=== PATIENT | female | born 1985 | race Caucasian/White ===

== ENCOUNTER 2018-08-27 20:50 | Emergency (ER) | payer MEDICAID ==
[~2018-08-27] VITALS: Ht 175.3 cm; Wt 63.5 kg
[2018-08-27] MEDS ORDERED: IOHEXOL 300 MG/ML 100ML BOTTLE IJ ONE (21:13)
[2018-08-27] MEDS ORDERED: PROMETHAZINE HCL 25 MG/ML 1ML IV ONE ×2 (21:15→22:15)
[2018-08-27] MEDS ORDERED: HYDROmorphone HCL 2 MG/ML VL IV ONE (21:15)
[2018-08-27] MEDS ORDERED: SODIUM CHLORIDE 0.9% 1,000 ML IV ONE (21:15)
[2018-08-27 21:47] LABS: Eosinophils # (auto) 0 uL; Hematocrit 41.8 % (36.0-46.0); Hemoglobin 13.3 g/dL (12.2-16.2); Lymphocytes # (auto) 0.8 uL; Mean Corpuscular Hemoglobin 26.9 pg (28.0-32.0); Neutrophils # (auto) 9.6 uL; White Blood Cell 10.9 10^3/uL (4.4-10.8)
[2018-08-27 21:49] LABS: Basophils # (auto) 0.1 uL; Basophils % (auto) 0.5 % (0.0-2.0); Eosinophils % (auto) 0.2 % (0.0-7.0); Lymphocytes % (auto) 7.3 % (10.0-50.0); Mean Corpuscular Hgb Conc. 31.8 g/dL (32.0-36.0); Mean Corpuscular Volume 84.5 fL (80.0-100.0); Monocytes # (auto) 0.4 uL; Monocytes % (auto) 4.1 % (0.0-12.0); Neutrophils % (auto) 87.9 % (37.0-80.0); Platelet Count (auto) 226 10^3/uL (140-450); Red Blood Cells 4.95 10^6/uL (4.0-5.20)
[2018-08-27 21:50] LABS: Red Cell Distribution Width 22.5 % (11.8-14.3)
[2018-08-27 22:04] LABS: Albumin 4.3 g/dL (3.4-5.0); BUN/Creatinine Ratio 21.5; Potassium 3.4 mmol/L (3.5-5.1)
[2018-08-27 22:06] LABS: Bilirubin, Total 1.3 mg/dL (0.2-1.0); Total Protein 7.9 g/dL (6.4-8.2)
[2018-08-27 22:07] LABS: INR 1.07 (0.9-1.15); Partial Thromboplastin Time 23.3 sec (23.78-33.04); Prothrombin Time 11.4 sec (9.27-12.13)
[2018-08-27] MEDS ORDERED: KETOROLAC TROMETH 30 MG/ML 1ML VIAL IV ONE (22:15)
[2018-08-27] MEDS ORDERED: diphenhdrAMINE HCL 50 MG/1 ML VL IV ONE (23:15)
[2018-08-27] MEDS ORDERED: HALOPERIDOL LACTATE 5 MG/ML INJ VIAL IM ONE (23:15)
[2018-08-27] MEDS ORDERED: HALOPERIDOL LACTATE 5 MG/ML INJ VIAL ONE (23:16)
[2018-08-28] MEDS ORDERED: SODIUM CHLORIDE 0.9% 1,000 ML IV ONE (02:00)
[2018-08-28] MEDS ORDERED: HYDROmorphone HCL 2 MG/ML VL IV ONE (02:15)
[2018-08-28 02:46] LABS: Calcium 7.9 mg/dL (8.5-10.1)
[2018-08-28 03:02] VITALS: BP 115/65
== END 2018-08-28 04:28 | disposition home or self-care (01) ==
LOC: EDBD 20:50 → ER 20:55
DX: E11.43 Type 2 diabetes mellitus with diabetic autonomic (poly)neuropathy (principal); K31.84 Gastroparesis; E86.0 Dehydration; I10 Essential (primary) hypertension; Z79.4 Long term (current) use of insulin; Z88.6 Allergy status to analgesic agent; Z88.8 Allergy status to other drugs, medicaments and biological substances
CPT/HCPCS: 36415; 74177; 80048; 80053; 82150; 82962; 83605; 83690; 85025; 85610; 85730; 87040; 96361; 96372; 96374; 96375; 96376; 99285; J1170; J1630; J1885; J2550; J7030; Q9967

== ENCOUNTER 2019-03-30 12:10 | Emergency (ER) | payer MEDICAID ==
[~2019-03-30] VITALS: Ht 175.3 cm; Wt 77.1 kg
[2019-03-30] MEDS: SODIUM CHLORIDE 0.9% 1,000 ML IVB ONE (12:32)
[2019-03-30] MEDS: HYDROmorphone HCL 2 MG/ML VL IV ONE (12:32)
[2019-03-30] MEDS: PROCHLORPERAZINE EDISYLATE 5 MG/ML 2ML VIAL IV ONE (12:32)
[2019-03-30] MEDS: FAMOTIDINE (10MG/ML) 2ML VL IV ONE (12:33)
[2019-03-30 13:35] LABS: Basophils # (auto) 0 uL; Basophils % (auto) 0.2 % (0.0-2.0); Eosinophils # (auto) 0 uL; Eosinophils % (auto) 0.3 % (0.0-7.0); Hematocrit 36.1 % (36.0-46.0); Hemoglobin 11.7 g/dL (12.2-16.2); Lymphocytes # (auto) 0.5 uL; Lymphocytes % (auto) 6.3 % (10.0-50.0); Mean Corpuscular Hemoglobin 28.1 pg (28.0-32.0); Mean Corpuscular Hgb Conc. 32.4 g/dL (32.0-36.0); Mean Corpuscular Volume 86.9 fL (80.0-100.0); Monocytes # (auto) 0.6 uL; Monocytes % (auto) 7.1 % (0.0-12.0); Neutrophils # (auto) 7.3 uL; Neutrophils % (auto) 86.1 % (37.0-80.0); Platelet Count (auto) 162 10^3/uL (140-450); Red Blood Cells 4.16 10^6/uL (4.0-5.20); Red Cell Distribution Width 16.5 % (11.8-14.3); White Blood Cell 8.5 10^3/uL (4.4-10.8)
[2019-03-30 13:50] LABS: Albumin 3.3 g/dL (3.4-5.0); Calcium 7.8 mg/dL (8.5-10.1); Magnesium 1.7 mg/dL (1.6-2.6); Potassium 3.8 mmol/L (3.5-5.1)
[2019-03-30 13:53] LABS: BUN/Creatinine Ratio 19.7; Bilirubin, Total 0.8 mg/dL (0.2-1.0); Total Protein 6.5 g/dL (6.4-8.2)
[2019-03-30] MEDS: ONDANSETRON HCL 4 MG/2 ML VIAL IV ONE (14:40)
[2019-03-30] MEDS: SODIUM CHLORIDE 0.9% 1,000 ML IV ONE (14:40)
[2019-03-30 14:50] LABS: Urine Bacteria NONE SEEN /hpf (None Seen); Urine Blood Negative /uL (Negative); Urine WBC <1 /hpf (0 - 5)
[2019-03-30 15:52] VITALS: BP 135/80
== END 2019-03-30 15:53 | disposition home or self-care (01) ==
LOC: EDUNIT# 12:10 → EDBD 12:10 → ER 12:10
DX: E11.43 Type 2 diabetes mellitus with diabetic autonomic (poly)neuropathy (principal); K31.84 Gastroparesis; E11.65 Type 2 diabetes mellitus with hyperglycemia; I10 Essential (primary) hypertension; Z79.4 Long term (current) use of insulin; Z98.51 Tubal ligation status; Z88.6 Allergy status to analgesic agent; Z88.8 Allergy status to other drugs, medicaments and biological substances
CPT/HCPCS: 36415; 74176; 80053; 81001; 83690; 83735; 85025; 93005; 94761; 96361; 96374; 96375; 99284; J0780; J1170; J2405; J3490; J7030

== ENCOUNTER 2020-09-21 09:31 | Emergency (ER) | payer MEDICAID ==
[~2020-09-21] VITALS: Ht 180.3 cm; Wt 77.1 kg
[2020-09-21] MEDS ORDERED: ONDANSETRON HCL 4 MG/2 ML VIAL IV ONE (10:00)
[2020-09-21] MEDS ORDERED: SODIUM CHLORIDE 0.9% 1,000 ML IV ONE (10:00)
[2020-09-21] MEDS ORDERED: MORPHINE SULFATE 4 MG/ML SYR/VIAL IV ONE (10:00)
[2020-09-21 10:32] LABS: Eosinophils # (auto) 0 10 ^3/uL (0-0.8); Lymphocytes # (auto) 0.6 10 ^3/uL (0.4-5.4); Monocytes # (auto) 0.4 10 ^3/uL (0-1.3); Nucleated Red Blood Cells % 0.1 %; Red Blood Cells 4.86 10^6/uL (4.0-5.20)
[2020-09-21 10:34] LABS: Basophils # (auto) 0.1 10 ^3/uL (0-0.2); Basophils % (auto) 0.5 % (0.0-2.0); Eosinophils % (auto) 0.2 % (0.0-7.0); Hematocrit 37.5 % (36.0-46.0); Hemoglobin 11.6 g/dL (12.2-16.2); Lymphocytes % (auto) 5.2 % (10.0-50.0); Mean Corpuscular Hemoglobin 23.9 pg (28.0-32.0); Mean Corpuscular Hgb Conc. 30.9 g/dL (32.0-36.0); Mean Corpuscular Volume 77.3 fL (80.0-100.0); Monocytes % (auto) 2.9 % (0.0-12.0); Neutrophils # (auto) 10.9 10 ^3/uL (1.6-8.6); Neutrophils % (auto) 91.2 % (37.0-80.0); Platelet Count (auto) 243 10^3/uL (140-450); Red Cell Distribution Width 18.4 % (11.8-14.3); White Blood Cell 11.9 10^3/uL (4.4-10.8)
[2020-09-21] MEDS ORDERED: PROMETHAZINE HCL 25 MG/ML 1ML IV ONE (10:45)
[2020-09-21 10:49] LABS: INR 1.08 (0.9-1.15); Partial Thromboplastin Time 21.6 sec (23.0-31.2)
[2020-09-21 10:56] LABS: Potassium 3.3 mmol/L (3.5-5.1)
[2020-09-21 11:02] LABS: BUN/Creatinine Ratio 8.4; Bilirubin, Total 0.4 mg/dL (0.2-1.0); Total Protein 7.8 g/dL (6.4-8.2)
[2020-09-21] MEDS ORDERED: MORPHINE SULFATE 4 MG/ML SYR/VIAL ONE (12:04)
[2020-09-21 13:01] LABS: Urine Bacteria NONE SEEN /hpf (None Seen); Urine Blood Negative /uL (Negative); Urine Mucus FEW (None Seen); Urine Specific Gravity 1.019 (1.001-1.035); Urine WBC 24 /hpf (0 - 5)
[2020-09-21 13:09] LABS: Amphetamine Screen, Urine NEGATIVE (NEGATIVE); Barbiturate Scree,Urine NEGATIVE (NEGATIVE); Benzodiazephine Screen, Urine NEGATIVE (NEGATIVE); Cannabinoid Screen, Urine POSITIVE (NEGATIVE); Cocaine Screen, Urine NEGATIVE (NEGATIVE); Opiate Scree,Urine POSITIVE (NEGATIVE); Phencyclidine Screen, Urine NEGATIVE (NEGATIVE)
[2020-09-21 14:37] VITALS: BP 112/52
== END 2020-09-21 15:26 | disposition home or self-care (01) ==
LOC: ER 09:31 → EDBD 09:31 → ER 14:43
DX: F12.188 Cannabis abuse with other cannabis-induced disorder (principal); E11.9 Type 2 diabetes mellitus without complications; I10 Essential (primary) hypertension; Z32.02 Encounter for pregnancy test, result negative; Z88.6 Allergy status to analgesic agent; Z88.8 Allergy status to other drugs, medicaments and biological substances; Z98.51 Tubal ligation status
CPT/HCPCS: 36415; 74176; 80053; 80307; 81001; 81025; 82150; 83690; 85025; 85610; 85730; 96361; 96374; 96375; 99284; J2270; J2405; J2550; J7030

== ENCOUNTER 2024-05-28 16:43 | Emergency (ER) | payer MEDICAID ==
[~2024-05-28] VITALS: Ht 175.3 cm; Wt 75.2 kg
[~2024-05-28 16:43] MED LIST: PANT40TA2 PO; ZOFR4T PO
[2024-05-28 19:00] LABS: Urine Bacteria FEW /hpf (None Seen); Urine Blood 1+ /uL (Negative); Urine Clarity Clear (Clear); Urine Color Yellow (Yellow); Urine Hyaline Cast MOD /lpf (0 - 2); Urine Mucus FEW (None Seen); Urine Protein, UAD TRACE (Negative); Urine Specific Gravity 1.025 (1.001-1.035); Urine Urobilinogen Normal (Negative); Urine WBC 1 /hpf (0 - 5); Urine pH 6.5 (5.0-9.0)
[2024-05-28 19:10] LABS: Eosinophils # (auto) 0.5 10 ^3/uL (0-0.8); Hemoglobin 11.3 g/dL (12.2-16.2); Lymphocytes # (auto) 1.4 10 ^3/uL (0.4-5.4); Mean Corpuscular Volume 74.8 fL (80.0-100.0); Monocytes # (auto) 1.1 10 ^3/uL (0-1.3); Neutrophils # (auto) 3.9 10 ^3/uL (1.6-8.6)
[2024-05-28 19:12] LABS: Basophils # (auto) 0.1 10 ^3/uL (0-0.2); Basophils % (auto) 0.8 % (0.0-2.0); Eosinophils % (auto) 7.9 % (0.0-7.0); Hematocrit 35.4 % (36.0-46.0); Lymphocytes % (auto) 19.8 % (10.0-50.0); Mean Corpuscular Hemoglobin 23.9 pg (28.0-32.0); Monocytes % (auto) 15.4 % (0.0-12.0); Neutrophils % (auto) 56.1 % (37.0-80.0); Red Blood Cells 4.74 10^6/uL (4.0-5.20); Red Cell Distribution Width 19.9 % (11.8-14.3)
[2024-05-28 19:27] LABS: Alanine Aminotransferase 14 U/L (7-40); Albumin 4.4 g/dL (3.2-4.8); Alkaline Phosphatase 103 U/L (46-116); Anion Gap 7 (5-15); Aspartate Aminotransferase 12 U/L (13-40); BUN/Creatinine Ratio 14.7 (10.0-20.0); Blood Urea Nitrogen 11 mg/dL (9-23); Calcium 9.8 mg/dL (8.7-10.4); Carbon Dioxide 32 mmol/L (20-30); Chloride 98 mmol/L (98-107); Glucose 92 mg/dL (74-106); Sodium 137 mmol/L (136-145)
[2024-05-28 19:28] LABS: Bilirubin, Total 0.5 mg/dL (0.2-1.0); Total Protein 7.4 g/dL (5.7-8.2)
[2024-05-28] MEDS: ONDANSETRON HCL 4 MG/2 ML VIAL IV ONE (19:37)
[2024-05-28] MEDS: SODIUM CHLORIDE 0.9% 1,000 ML IV ONE (19:37)
[2024-05-28 20:02] LABS: Potassium 2.4 mmol/L (3.5-5.1)
[2024-05-28] MEDS: POTASSIUM CHL 20MEQ/100ML 100 ML IV SCH (21:37)
[2024-05-28] MEDS: POTASSIUM CHL 20 Meq TABLET PO ONE (21:37)
[2024-05-28 21:43] VITALS: PULSE 88; RESP 16; O2SAT 99
[2024-05-29 07:14] VITALS: BP 120/87; PULSE 76; RESP 16; TEMP 98.2; O2SAT 96
== END 2024-05-29 07:15 | disposition home or self-care (01) ==
LOC: ER 16:43
DX: E87.6 Hypokalemia (principal); R11.2 Nausea with vomiting, unspecified; E10.9 Type 1 diabetes mellitus without complications; I10 Essential (primary) hypertension; F12.10 Cannabis abuse, uncomplicated; Z32.02 Encounter for pregnancy test, result negative; Z98.51 Tubal ligation status; Z88.6 Allergy status to analgesic agent
CPT/HCPCS: 36415; 80053; 81001; 81025; 85025; 93005; 96361; 96365; 96366; 99285; J3480; J7030

== ENCOUNTER 2024-12-16 10:39 | Inpatient (IN) | payer MEDICAID ==
[~2024-12-16] VITALS: Ht 167.6 cm; Wt 81.2 kg
--- NOTE | 2024-12-16 10:52 | ED.PDOC ---
GI ASSESSMENT HPI Comments 39y F who presents to the ED via EMS for chief complaint of abdominal pain. Per EMS, pt has been having diffuse abdominal pain for the past 36 hours. Pt states it has gotten worse since last night and called EMS today. Pt states she had been having nausea, vomiting and diarrhea but states since last night, she started to have chills and associated body aches. EMS arrived on scene and pt had AC established and pt was given 8 mg of Zofran and brought to the ED. EMS states pt has noted Accu check of 568 with pt being a noted type 1 diabetic. Pt in the ED states, she had bone graft surgery last Saturday, 5 days prior and states she has been on amoxicillin and Flagyl since. Pt states last night, she also started to have black stools.Pt otherwise denies any other symptoms at this time. Chief Complaint: Nausea/Vomiting Time Seen by MD: 10:48 Primary Care Provider: ITZEL Reviewed Notes: Nurses Notes, Medications, Allergies Allergies: Coded Allergies: Acetaminophen (Verified Allergy, Unknown, 09/21/20) Hydrocodone (Verified Allergy, Unknown, 09/21/20) Lisinopril (Verified Allergy, Unknown, 05/28/24) Uncoded Allergies: DEMEROL (Allergy, Unknown, 08/27/18) Home Meds Active Scripts Pantoprazole Sodium Sesquihydr (Protonix) 40 Mg Tab, 40 MG PO DAILY, #30 TAB Prov:SONU PETE MD 05/21/24 Ondansetron Odt 4MG Tab (ZOFRAN PO) 4 Mg Tb, 4 MG PO TID for 7 Days, #21 TAB ODT TAB-DISSOLVE IN MOUTH, THEN SWALLOW Prov:SONU PETE MD 05/21/24 Information Source: Patient, Emergency Med Personnel Mode of Arrival: EMS Brought in by: EMS Timing: Days Duration: Since onset Prehospital treatment: Treatment (zofran,) Quality: None Vomitus: Soft Stool: Blood Streaked Severity: Moderate Recent: Recent Surgery, Antibiotics Recent Hx of: Diabetes Pain Location: Diffuse Modifying Factors: Nothing Associated sign and symptoms: Nausea, Vomiting, Diarrhea, Abdominal Pain Past Medical History PAST MEDICAL HISTORY: DM, HTN Past Medical History (Other): irregular heart beat, gastroparesis Surgical History: BTL, GAS OR WATER METER INSTALLER History: No Pertinent GAS OR WATER METER INSTALLER History Family History Family History: Unknown Social History Smoker: Non-Smoker Alcohol: Heavy Drugs: Marijuana Lives In: Home Constitutional: reports: chills, fatigue; denies: diaphoresis, fever, malaise, sweats, weakness, others EENTM: denies: blurred vision, double vision, ear bleeding, ear discharge, ear drainage, ear pain, ear ringing, eye pain, eye redness, hearing loss, mouth pain, mouth swelling, nasal discharge, nose bleeding, nose congestion, nose pain, photophobia, tearing, throat pain, throat swelling, voice changes, others Respiratory: denies: cough, hemoptysis, orthopnea, SOB at rest, shortness of breath, SOB with excertion, stridor, wheezing, others Cardiovascular: denies: chest pain, dizzy spells, diaphoresis, Dyspnea on exertion, edema, irregular heart beat, left arm pain, lightheadedness, palpitations, PND, syncope, others Gastrointestinal: reports: abdominal pain, diarrhea, nausea, vomiting; denies: abdomen distended, blood streaked bowels, constipated, dysphagia, difficulty swallowing, hematemesis, melena, poor appetite, poor fluid intake, rectal bleeding, rectal pain, others Genitourinary: denies: abnormal vagina bleeding, burning, dyspareunia, dysuria, flank pain, frequency, hematuria, incontinence, pain, , vagina discharge, urgency, others Neurological: denies: dizziness, fainting, headache, left sided numbness, left sided weakness, numbness, paresthesia, pre-existing deficit, right sided numbness, right sided weakness, seizure, speech problems, tingling, tremors, weakness, others Musculoskeletal: denies: back pain, gout, joint pain, joint swelling, muscle pain, muscle stiffness, neck pain, others Integumetry: denies: bruises, change in color, change in hair/nails, dryness, laceration, lesions, lumps, rash, wounds, others Allergic/Immunocompromised: denies: Difficulty Healing, Frequent Infections, Hives, Itching, others Hematologic/Lymphatic: denies: anemia, blood clots, easy bleeding, easy bruising, swollen glands, others Endocrine: denies: excessive hunger, excessive sweating, excessive thirst, excessive urination, flushing, intolerance to cold, intolerance to heat, unexplained weight gain, unexplained weight loss, others Psychiatric: denies: anxiety, bipolar disorder, depression, hopeless, panic disorder, schizophrenia, sleepless, suicidal, others All Other Systems: Reviewed and Negative Physical Exam General Appearance: Moderate Distress HEENT: Pale Conjuntivae (L), Pale Conjuntivae (R), Pharynx Normal, TMs Normal Neck: Full Range of Motion, Non-Tender, Normal, Normal Inspection Respiratory: Chest Non-Tender, Lungs Clear, No Accessory Muscle Use, No Respiratory Distress, Normal Breath Sounds Cardiovascular: No Edema, No JVD, No Murmur, No Gallop, Normal Peripheral Pulses, Regular Rate/Rhythm Breast Exam: Deferred Gastrointestinal: No Organomegaly, Non Tender, No Pulsatile Mass, Normal Bowel Sounds, Soft Genitalia: Deferred Pelvic: Deferred Rectal: Deferred Extremities: No calf tenderness, Normal capillary refill, Normal inspection, Normal range of motion, Non-tender, No pedal edema Musculoskeletal : Apperance: Normal Neurologic: Alert, clinical staff anesthesiologist II-XII nml as Tested, Motor Weakness, Normal Affect, Normal Mood, No Sensory Deficits Cerebellar Function: Normal Reflexes: Normal Skin: Dry, Normal Color, Warm Lymphatic: No Adenopathy Was a procedure done? Was a procedure done?: No GI differential Dx Differential Diagnosis: Diverticular disease, Gastritis/PUD, Gastroenteritis, GI hemorrhage, Pancreatitis, UTI Other Differential Diagnosis DKA, C DIFF COLITIS X-Ray, Labs, Meds, VS Vital Signs Date Time Temp Pulse Resp B/P (MAP) Pulse Ox O2 Delivery O2 Flow Rate FiO2 12/16/24 12:00 95 18 101/44 (63) 12/16/24 12:00 95 17 101/44 12/16/24 11:20 15 15 143/61 12/16/24 10:58 98.0 105 22 108/44 (65) 100 98.0 12/16/24 10:56 100 Room Air* 0 21 12/16/24 10:41 98.0 104 22 138/94 (109) 96 Lab Test 12/16/24 10:52 Range/Units White Blood Count 7.1 4.4-10.8 10^3/uL Red Blood Count 4.75 4.0-5.20 10^6/uL Hemoglobin 11.4 L 12.2-16.2 g/dL Hematocrit 37.3 36.0-46.0 % Mean Corpuscular Volume 78.5 L 80.0-100.0 fL Mean Corpuscular Hemoglobin 23.9 L 28.0-32.0 pg Mean Corpuscular Hemoglobin Concent 30.5 L 32.0-36.0 g/dL Red Cell Distribution Width 20.0 H 11.8-14.3 % Platelet Count 214 140-450 10^3/uL Mean Platelet Volume 10.5 6.9-10.8 fL Neutrophils (%) (Auto) 82.3 H 37.0-80.0 % Lymphocytes (%) (Auto) 10.2 10.0-50.0 % Monocytes (%) (Auto) 5.2 0.0-12.0 % Eosinophils (%) (Auto) 0.7 0.0-7.0 % Basophils (%) (Auto) 1.6 0.0-2.0 % Neutrophils # (Auto) 5.9 1.6-8.6 10 ^3/uL Lymphocytes # (Auto) 0.7 0.4-5.4 10 ^3/uL Monocytes # (Auto) 0.4 0-1.3 10 ^3/uL Eosinophils # (Auto) 0 0-0.8 10 ^3/uL Basophils # (Auto) 0.1 0-0.2 10 ^3/uL Nucleated Red Blood Cells 0.1 % Sodium Level 132 L 136-145 mmol/L Potassium Level 4.7 3.5-5.1 mmol/L Chloride Level 97 L 98-107 mmol/L Carbon Dioxide Level 14 L 20-31 mmol/L Anion Gap 21 H 5-15 Blood Urea Nitrogen 14 9-23 mg/dL Creatinine 1.14 H 0.550-1.02 mg/dL Glomerular Filtration Rate Calc 62 >90 mL/min BUN/Creatinine Ratio 12.3 10.0-20.0 Serum Glucose 568 *H 74-106 mg/dL Calcium Level 9.8 8.7-10.4 mg/dL Total Bilirubin 0.6 0.2-1.0 mg/dL Aspartate Amino Transferase (AST) 17 13-40 U/L Alanine Aminotransferase (ALT) 14 7-40 U/L Alkaline Phosphatase Pending Total Protein 7.0 5.7-8.2 g/dL Albumin 4.5 3.2-4.8 g/dL Lipase 23 12-53 U/L Beta-Hydroxybutyric Acid Pending Current Medications Medications (Trade) Dose Ordered Sig/Genoveva Route Start Time Stop Time Status Last Admin Sodium Chloride 1,000 ml @ 1,000 mls/hr Q1H ONCE IVB 12/16/24 10:45 12/16/24 11:44 DC 12/16/24 11:20 Morphine Sulfate 4 mg ONCE ONCE IV 12/16/24 10:45 12/16/24 10:46 DC 12/16/24 11:20 Prochlorperazine Edisylate (Compazine Inj) 10 mg ONCE ONCE IV 12/16/24 10:45 12/16/24 10:46 DC 12/16/24 11:19 Pantoprazole Sodium (Protonix) 40 mg ONCE ONCE IV 12/16/24 10:45 12/16/24 10:46 DC 12/16/24 11:17 Insulin Human Regular (InsuLIN R) 5 units ONCE ONCE IV 12/16/24 10:45 12/16/24 10:46 DC 12/16/24 11:19 CT ABDOMEN AND PELVIS WITHOUT CONTRAST IMPRESSION: 1. There is no acute process in the abdomen and pelvis. 2. Stable 3 mm nodule in the inferior right middle lobe. IV Hep-Lock was established. For the pain, the patient was given Protonix 40 mg IV push The patient was also given Compazine 10 mg IV push for the nausea and vomiting The patient was given morphine 4 mg IV push for the pain. The patient's Accu-Chek came back significantly elevated so the patient will be continued on the normal saline and was given insulin 5 units IV push initially. The patient's CBC came back which is within normal limits. The chemistry panel came back and shows a BUN of 14 and a creatinine of 1.14 The patient's CO2 level is only 14 and the anion gap is elevated at 21 At this time we are ordering an ABG because we feel that the patient was in early DKA The patient was being started on an insulin drip. We are going to contact [facility] and let them know that the patient was unstable for transfer. [facility] has given us the authorization for admission to [facility] The authorization #[id number] Images Reviewed?: Images reviewed and evaluated by me Time of 1ST Reevaluation: 11:20 Reevaluation 1ST: Unchanged Patient Education/Counseling: Diagnosis, Treatment, Prognosis Family Education/Counseling: No Family Present Additional Information - I reviewed the following notes from patient's past medical encounters: - The following tests were ordered, and results were reviewed by me: (Labs, X- Ray, EKG): Ct abdomen pelvis non-contrast, cbc, cmp, lipase, ua, - Additional information was gathered from interviewing the following independent Historian: (Family, Other Providers, EMT): EMS - I reviewed and agreed with the following test results read by other provider: radiologist - I discussed treatments and results with medical personnel and: (consultants, family): none Departure 1 Departure Time of Disposition: 12:29 Impression: Primary Impression: Diabetic ketoacidosis Qualified Codes: E10.10 - Type 1 diabetes mellitus with ketoacidosis without coma Additional Impressions: Intractable vomiting Marijuana use Disposition: ADMITTED INPATIENT Admit to: ICU Condition: Fair Critical Care Note Critical Care Time?: Yes (45 min-critical care time only) Stability Stability form required: Yes Unstable for transfer: ICU, CCU, PCU, KEYON (Intensive VS monitoring), ED Physician Assesment (Clinical assesment) Heart Score Heart Score: Heart Score Response (Comments) Value History N/A 0 EKG N/A 0 Age N/A 0 Risk Factors N/A 0 Troponin N/A 0 Total 0 I personally scribed for LACEY HIGH MD ([email or web address]) on 12/16/24 at 10:52. Electronically submitted by Farhad Vyas ([employer]SURINDER). I personally scribed for LACEY HIGH MD ([email or web address]) on 12/16/24 at 11:29. Electronically submitted by Farhad SALINAS). LACEY HIGH MD Dec 16, 2024 10:52
[2024-12-16 10:56] VITALS: O2SAT 100
[2024-12-16 11:17] LABS: Eosinophils # (auto) 0 10 ^3/uL (0-0.8); Eosinophils % (auto) 0.7 % (0.0-7.0); Platelet Count (auto) 214 10^3/uL (140-450); Red Blood Cells 4.75 10^6/uL (4.0-5.20)
[2024-12-16] MEDS: PANTOPRAZOLE 40 MG/10 ML VIAL INJ IV ONE (11:17)
[2024-12-16] MEDS: PROCHLORPERAZINE EDISYLATE 5 MG/ML 2ML VIAL IV ONE (11:19)
[2024-12-16] MEDS: InsuLIN REG 1unit/0.01ml Soln (100units/ml) IV ONE (11:19)
[2024-12-16] MEDS: MORPHINE SULFATE 4 MG/ML SYR/VIAL IV ONE ×2 (11:20→12:40)
[2024-12-16] MEDS: SODIUM CHLORIDE 0.9% 1,000 ML IVB ONE (11:20)
[2024-12-16 11:23] LABS: Basophils # (auto) 0.1 10 ^3/uL (0-0.2); Basophils % (auto) 1.6 % (0.0-2.0); Hematocrit 37.3 % (36.0-46.0); Hemoglobin 11.4 g/dL (12.2-16.2); Lymphocytes # (auto) 0.7 10 ^3/uL (0.4-5.4); Lymphocytes % (auto) 10.2 % (10.0-50.0); Mean Corpuscular Hemoglobin 23.9 pg (28.0-32.0); Mean Corpuscular Hgb Conc. 30.5 g/dL (32.0-36.0); Mean Corpuscular Volume 78.5 fL (80.0-100.0); Monocytes # (auto) 0.4 10 ^3/uL (0-1.3); Monocytes % (auto) 5.2 % (0.0-12.0); Neutrophils # (auto) 5.9 10 ^3/uL (1.6-8.6); Neutrophils % (auto) 82.3 % (37.0-80.0); Nucleated Red Blood Cells % 0.1 %; White Blood Cell 7.1 10^3/uL (4.4-10.8)
--- NOTE | 2024-12-16 11:26 | DVH ---
CT ABDOMEN AND PELVIS WITHOUT CONTRAST CLINICAL HISTORY: PAIN TECHNIQUE: Multiple contiguous axial images of the abdomen and pelvis without intravenous contrast. The images were reformatted degenerate coronal and sagittal reconstructions. All CT scans at this medical facility are performed using dose modulation techniques as appropriate t o a performed exam including the following:Automated exposure control was utilized; adjustment of the MA and/or KV according to patient size; and use of iterative reconstruction technique. Radiation Dose Information: CT Dose: CTDI volume is 14 mGy. Dose-length product is 807 mGy*cm Comparison: CT CT AB PEL WO CON-NO ORAL OR IV on DOS: 05/21/24, CT ABD PELVIS WO CONTRAST on DOS: 09/04 06/23 FINDINGS: Evaluation of the abdomen and pelvis is limited without intravenous contrast. The liver, gallbladder, pancreas, kidneys, adrenal glands, and spleen appear within normal limits. There is no gross evidence of abdominal lymphadenopathy. There is no free fluid or free air. The stomach grossly appears unremarkable. The small and large bowel loops demonstrate normal caliber . There is small amount contrast seen in right lower quadrant small bowel loops and in the cecum. Th ere is a normal appearing appendix seen in the right lower quadrant abdomen. The abdominal aorta and IVC appear within normal limits. The bladder appears unremarkable for the degree of distention. Pelvic organ appears within normal cedeno its. There is no gross evidence of a pelvic mass. There is no free fluid collection. There is a stable 3 mm nodule in the inferior right middle lobe. There is no acute osseous abnormality. IMPRESSION: 1. There is no acute process in the abdomen and pelvis. 2. Stable 3 mm nodule in the inferior right middle lobe. HS:Y
[2024-12-16 12:05] LABS: Alanine Aminotransferase 14 U/L (7-40); Albumin 4.5 g/dL (3.2-4.8); Anion Gap 21 (5-15); Aspartate Aminotransferase 17 U/L (13-40); BUN/Creatinine Ratio 12.3 (10.0-20.0); Blood Urea Nitrogen 14 mg/dL (9-23); Calcium 9.8 mg/dL (8.7-10.4); Lipase 23 U/L (12-53); Potassium 4.7 mmol/L (3.5-5.1)
[2024-12-16 12:06] LABS: Bilirubin, Total 0.6 mg/dL (0.2-1.0)
[2024-12-16 12:15] LABS: Carbon Dioxide 14 mmol/L (20-31); Chloride 97 mmol/L (98-107); Sodium 132 mmol/L (136-145)
[2024-12-16 12:17] LABS: Glucose 568 mg/dL (74-106)
[2024-12-16] MEDS ORDERED: DEXTROSE (50%) 50ML SYRG IV PRN ×2 (12:30→23:45)
[2024-12-16] MEDS: INSULIN LANTUS (GLARGINE) 1 /0.01ml (100units/ml) SC ONE (12:41)
[2024-12-16] MEDS: INSULIN DRIP 100 UNIT/100ML 100 ML IV SCH (12:42)
[2024-12-16 12:59] LABS: Base Excess -13.5 mmol/L (-2.0-3.0)
[2024-12-16 13:05] LABS: Alkaline Phosphatase 83 U/L (46-116)
[2024-12-16] MEDS: ACCU-CHEK COMFORT CURVE STRIP VI SCH (13:35)
[2024-12-16] MEDS ORDERED: AMLO1TAB23 PO (14:38)
[2024-12-16] MEDS ORDERED: INSLANTI SC (14:38)
[2024-12-16] MEDS ORDERED: SODIUM CHLORIDE 0.9% 1,000 ML IV SCH (14:45)
[2024-12-16] MEDS ORDERED: HYDROcodone-ACET 5/325MG TAB PO PRN (14:45)
[2024-12-16] MEDS ORDERED: DOCUSATE SOD 100 MG CAP PO PRN (14:45)
[2024-12-16] MEDS ORDERED: MORPHINE SULFATE INJ 2 MG/ml SYRG IV PRN (14:45)
[2024-12-16] MEDS ORDERED: NITROGLYCERIN 0.4 MG SL TAB SL PRN (14:45)
--- NOTE | 2024-12-16 14:49 | DVHHP2 ---
History of Present Illness Reason for Visit: Intractable nausea and vomiting History of Present Illness Luisana Bassett is a 39-year-old female with past medical history of hypertension, and diabetes who came into the hospital due to intractable nausea and vomiting. Patient states she started having abdominal pain, nausea, and vomiting last night. When it wasn't improving today she and her blood sugars were elevating she came to the hospital. Patient had bone graft surgery to her jaw last week. She states she was able to take her medications last night, but not this morning due to the nausea and vomiting. Cardiovascular: HTN Endocrine: Diabetes Past Surgical History: (x 2), Other (Left breast surgery, multiple bone grafts to upper and lower jaw), Tubal Ligation Family History: None Smoke: No ALCOHOL: rare Drugs: Marijuana Lives: with Family Domestic Violence: Neg Review of Systems Constitutional: No: Fever, Chills, Sweats, Weakness, Malaise, Other Eyes: No: Pain, Vision change, Conjunctivae inflammation, Eyelid inflammation, Other, Redness ENT: No: Ear pain, Ear discharge, Nose pain, Nose discharge, Nose congestion, Mouth pain, Mouth swelling, Throat pain, Throat swelling, Other Respiratory: No: Cough, Dry, Shortness of breath, SOB with excertion, Wheezing, Hemoptysis, Pleuritic Pain, Sputum, Wheezing, Other Cardiovascular: No: Chest Pain, Palpitations, Orthopnea, Paroxysmal Noc. Dyspnea, Edema, Lt Headedness, Other Gastrointestinal: Nausea, Vomiting, Abdominal Pain; No: Diarrhea, Constipation, Melena, Hematochezia, Other Genitourinary: No Dysuria, No Frequency, No Incontinence, No Hematuria, No Retention, No Other Musculoskeletal: No: other, neck pain, shoulder pain, arm pain, back pain, hand pain, leg pain, foot pain Skin: No: Rash, Lesions, Jaundice, Bruising, Other Neurological: No: Weakness, Numbness, Incoordination, Change in speech, Confusion, Seizures, Other Allergies: Coded Allergies: Hydrocodone (Verified Allergy, Unknown, 09/21/20) Lisinopril (Verified Allergy, Unknown, 05/28/24) Uncoded Allergies: DEMEROL (Allergy, Unknown, 08/27/18) Medications Current Medications Medications Dose Ordered Sig/Genoveva Route Start Time Stop Time Status Last Admin Dose Admin Insulin Human (Reg)/Sodium Chloride 100 ml @ 0.5 mls/hr Q24H IV 12/16/24 12:30 12/16/24 12:42 6 MLS/HR Diagnostic Test (Pha) 1 strip Q90MIN 12/16/24 13:30 12/16/24 13:35 1 STRIP Dextrose 50 ml PRN PRN IV 12/16/24 12:30 Acetaminophen/ Hydrocodone Bitart 1 tab Q4HP PRN PO 12/16/24 14:45 UNV Ondansetron HCl 4 mg Q4HP PRN IV 12/16/24 14:45 UNV Docusate Sodium 100 mg BIDPRN PRN PO 12/16/24 14:45 UNV Acetaminophen 650 mg Q6HP PRN PO 12/16/24 14:45 UNV Nitroglycerin 0.4 mg Q5MINP PRN SL 12/16/24 14:45 UNV Morphine Sulfate 2 mg Q30M PRN IV 12/16/24 14:45 UNV Insulin Glargine 40 units DAILY SC 12/17/24 10:00 UNV Patient Own Medication 1 tab DAILY PO 12/17/24 10:00 UNV Metoclopramide HCl 10 mg Q8HPRN PRN IV 12/16/24 14:45 UNV Metronidazole 100 ml @ 100 mls/hr Q8HR IV 12/16/24 14:45 UNV Exam Vital Signs Vital Signs Date Time Temp Pulse Resp B/P (MAP) Pulse Ox O2 Delivery O2 Flow Rate FiO2 12/16/24 14:00 98.2 100 11 104/59 (74) 98 98.2 12/16/24 10:56 Room Air* 0 21 Exam Pain to her jaw General Appearance: Alert, Oriented X3, Cooperative, moderate distress HEENT: Atraumatic, PERRLA Respiratory: Clear to auscultation, Normal air movement Cardiovascular: Regular rate, Normal S1, Normal S2 Abdominal: Normal bowel sounds, Soft, No tenderness, No hepatospenomegaly Extremities: No clubbing, No cyanosis, No edema, Normal pulses, No t enderness/swelling Skin: No rashes, No breakdown, No significant lesion Neuro: Normal gait, Normal speech, Strength at 5/5 X4 ext Psych/Mental Status: Mental status NL, Mood NL Labs/Xrays Labs Test 12/16/24 13:37 2/12/25 12:55 12/16/24 10:52 Range/Units POC Glucose 310 H 70-106 mg/dl Blood Gas Specimen Type Arterial Blood Gas Sample Site Left radial Blood Gas Patient Temperature 37.0 Arterial Blood Date Drawn [id number] Arterial Blood pH 7.308 L 7.350-7.450 Arterial Blood Partial Pressure CO2 22.4 L 32.0-45.0 mmHg Arterial Blood Partial Pressure O2 102.0 83.0-108.0 mmHg Arterial Blood HCO3 11.0 L 21.0-28.0 mmol/L Arterial Blood Oxygen Saturation 97.1 94.0-98.0 % Arterial Blood Base Excess -13.5 L -2.0-3.0 mmol/L Arterial Blood Oxyhemoglobin 95.9 94.0-98.0 % Arterial Blood Carboxyhemoglobin 0.3 L 0.5-1.5 % Arterial Blood Methemoglobin 0.9 0.0-1.5 % Jose Rafael Test Yes Blood Gas Total Hemoglobin 11.60 L 12.0-16.0 g/dL Blood Gas Liter Flow 0.00 Blood Gas Modality Room air FiO2 % 21.0 White Blood Count 7.1 4.4-10.8 10^3/uL Red Blood Count 4.75 4.0-5.20 10^6/uL Hemoglobin 11.4 L 12.2-16.2 g/dL Hematocrit 37.3 36.0-46.0 % Mean Corpuscular Volume 78.5 L 80.0-100.0 fL Mean Corpuscular Hemoglobin 23.9 L 28.0-32.0 pg Mean Corpuscular Hemoglobin Concent 30.5 L 32.0-36.0 g/dL Red Cell Distribution Width 20.0 H 11.8-14.3 % Platelet Count 214 140-450 10^3/uL Mean Platelet Volume 10.5 6.9-10.8 fL Neutrophils (%) (Auto) 82.3 H 37.0-80.0 % Lymphocytes (%) (Auto) 10.2 10.0-50.0 % Monocytes (%) (Auto) 5.2 0.0-12.0 % Eosinophils (%) (Auto) 0.7 0.0-7.0 % Basophils (%) (Auto) 1.6 0.0-2.0 % Neutrophils # (Auto) 5.9 1.6-8.6 10 ^3/uL Lymphocytes # (Auto) 0.7 0.4-5.4 10 ^3/uL Monocytes # (Auto) 0.4 0-1.3 10 ^3/uL Eosinophils # (Auto) 0 0-0.8 10 ^3/uL Basophils # (Auto) 0.1 0-0.2 10 ^3/uL Nucleated Red Blood Cells 0.1 % Sodium Level 132 L 136-145 mmol/L Potassium Level 4.7 3.5-5.1 mmol/L Chloride Level 97 L 98-107 mmol/L Carbon Dioxide Level 14 L 20-31 mmol/L Anion Gap 21 H 5-15 Blood Urea Nitrogen 14 9-23 mg/dL Creatinine 1.14 H 0.550-1.02 mg/dL Glomerular Filtration Rate Calc 62 >90 mL/min BUN/Creatinine Ratio 12.3 10.0-20.0 Serum Glucose 568 *H 74-106 mg/dL Calcium Level 9.8 8.7-10.4 mg/dL Total Bilirubin 0.6 0.2-1.0 mg/dL Aspartate Amino Transferase (AST) 17 13-40 U/L Alanine Aminotransferase (ALT) 14 7-40 U/L Alkaline Phosphatase 83 46-116 U/L Total Protein 7.0 5.7-8.2 g/dL Albumin 4.5 3.2-4.8 g/dL Lipase 23 12-53 U/L CT ABDOMEN AND PELVIS WITHOUT CONTRAST FINDINGS: Evaluation of the abdomen and pelvis is limited without intravenous contrast. The liver, gallbladder, pancreas, kidneys, adrenal glands, and spleen appear within normal limits. There is no gross evidence of abdominal lymphadenopathy. There is no free fluid or free air. The stomach grossly appears unremarkable. The small and large bowel loops demonstrate normal caliber. There is small amount contrast seen in right lower quadrant small bowel loops and in the cecum. There is a normal appearing appendix seen in the right lower quadrant abdomen. The abdominal aorta and IVC appear within normal limits. The bladder appears unremarkable for the degree of distention. Pelvic organ appears within normal limits. There is no gross evidence of a pelvic mass. There is no free fluid collection. There is a stable 3 mm nodule in the inferior right middle lobe. There is no acute osseous abnormality. IMPRESSION: 1. There is no acute process in the abdomen and pelvis. 2. Stable 3 mm nodule in the inferior right middle lobe. Assessment/Plan Assessment/Plan Assessment: DKA, Intractable nausea and vomiting, S/P Bone graft to lower jaw, Hypertension, Plan: Admit to SDU, Insulin drip per protocol, Lantus daily, IV IV hydration, Manage/Monitor electrolytes closely, NPO, IV Flagyl, BMP Q4 hours, Home medications reconciled, Plan discussed with: Patient My Orders Orders - BISHNU DON Procedure Category Date Status Time Admit ADMIT 12/16/24 Transmitted 14:35 Code Status CODE 12/16/24 Transmitted 14:35 Hydrocodone-Acet PHA 12/16/24 Logged 5/325mg Tab ([facility]mith 14:45 Ondansetron Hcl PHA 12/16/24 Logged (Zofran) 14:45 Docusate Sodium PHA 12/16/24 Logged Capsule (Colace 14:45 Complete Blood Count LAB 12/17/24 Verified 04:00 Comprehensive LAB 12/17/24 Verified Metabolic Panel 04:00 Npo (Nothing By DIET 12/16/24 Transmitted Mouth) Diet Dinner Condition: Critical SABINE 12/16/24 In Process 14:35 Acetaminophen Tablet PHA 12/16/24 Logged (Tylenol Tablet) 14:45 Nitroglycerin PHA 12/16/24 Logged Sublingual (Ntrostat 14:45 Morphine Sulfate PHA 12/16/24 Logged Injection 14:45 Stat Ekg For Chest SABINE 12/16/24 In Process Pain 14:35 Notify Md Of Changes SABINE 12/16/24 In Process From Base 14:35 Burn Out Tender Lace For SABINE 12/16/24 In Process 24 Hours 14:35 Emergency Dysrhythmia SABINE 12/16/24 In Process Protocol 14:35 Rhythm Strips Once SABINE 12/16/24 In Process Every Shift 14:35 Oxygen By Nasal RT 12/16/24 Transmitted Cannula 14:35 Insulin Lantus PHA 12/17/24 Logged (Glargine) (Lantus) 10:00 (Nf) Amlodipine PHA 12/17/24 Logged Besylate 10:00 Metoclopramide PHA 12/16/24 Transmitted Injection (Reglan 14:45 Metronidazole Ivpb PHA 12/16/24 Transmitted Flagyl 14:45 NS PHA 12/16/24 Transmitted 14:45 NS PHA 12/16/24 Transmitted 14:45 Basic Metabolic Panel LAB 12/16/24 Transmitted 14:40 Date of Service: Dec 16, 2024 Billing Provider: BISHNU DON Common Visit Codes: [id number] INP/OBS CARE (HIGH) BISHNU DON Dec 16, 2024 14:49
[2024-12-16 15:37] LABS: Chloride 105 mmol/L (98-107); Potassium 3.9 mmol/L (3.5-5.1); Sodium 138 mmol/L (136-145)
[2024-12-16 15:38] LABS: Anion Gap 17 (5-15)
[2024-12-16 15:39] LABS: Calcium 9.9 mg/dL (8.7-10.4)
[2024-12-16 15:43] LABS: BUN/Creatinine Ratio 13.2 (10.0-20.0); Blood Urea Nitrogen 14 mg/dL (9-23); Carbon Dioxide 16 mmol/L (20-31); Glucose 248 mg/dL (74-106)
[2024-12-16] MEDS: SODIUM CHLORIDE 0.9% 1,000 ML IV ONE (15:48)
[2024-12-16] MEDS: metroNIDAZOLE 500MG/100ML 100 ML IV SCH (15:52)
[2024-12-16] MEDS: POTASSIUM CHL 20MEQ/100ML 100 ML IV SCH ×2 (16:00→23:30)
[2024-12-16] MEDS: D5W/SOD CHL 0.45% 1,000 ML IV SCH (16:33)
[2024-12-16] MEDS: MORPHINE SULFATE INJ 2 MG/ml SYRG IV PRN (18:30)
[2024-12-16 19:16] LABS: Chloride 106 mmol/L (98-107); Potassium 4.4 mmol/L (3.5-5.1); Sodium 138 mmol/L (136-145)
[2024-12-16 19:17] LABS: Anion Gap 13 (5-15)
[2024-12-16 19:22] LABS: BUN/Creatinine Ratio 18.4 (10.0-20.0); Blood Urea Nitrogen 16 mg/dL (9-23)
[2024-12-16 19:23] LABS: Carbon Dioxide 19 mmol/L (20-31); Glucose 178 mg/dL (74-106)
[2024-12-16 19:30] VITALS: PULSE 85; O2SAT 98
[2024-12-16 21:15] LABS: Urine Bacteria None Seen /hpf (None Seen)
[2024-12-16 21:24] LABS: Urine Blood Negative /uL (Negative); Urine Clarity Clear (Clear); Urine Color Light-Yellow (Yellow); Urine Mucus FEW (None Seen); Urine Protein, UAD TRACE (Negative); Urine Specific Gravity 1.017 (1.001-1.035); Urine Squamous Epithelial Cell FEW /hpf (<5); Urine Urobilinogen Normal (Negative); Urine WBC 7 /HPF (0-5)
[2024-12-16 23:54] LABS: Chloride 107 mmol/L (98-107); Potassium 4.3 mmol/L (3.5-5.1); Sodium 137 mmol/L (136-145)
[2024-12-16 23:55] LABS: Anion Gap 9 (5-15); Calcium 8.9 mg/dL (8.7-10.4); Carbon Dioxide 21 mmol/L (20-31)
[2024-12-17] VITALS (10 sets, daily range): BP systolic 122–151; BP diastolic 69–97; PULSE 80–98; RESP 16–18; TEMP 97.7–99.2; O2SAT 94–100
[2024-12-17] LABS: BUN/Creatinine Ratio 15.1 (10.0-20.0); Blood Urea Nitrogen 11 mg/dL (9-23)
[2024-12-17 00:01] LABS: Glucose 161 mg/dL (74-106)
[2024-12-17] MEDS: ACCU-CHEK COMFORT CURVE STRIP VI SCH (00:11)
[2024-12-17] MEDS: InsuLIN REG 1unit/0.01ml Soln (100units/ml) SC SCH (00:16)
[2024-12-17] MEDS: ONDANSETRON HCL 4 MG/2 ML VIAL IV PRN (02:02)
[2024-12-17] MEDS: ACETAMINOPHEN 325 MG TAB PO PRN (04:04)
[2024-12-17] MEDS ORDERED: INSLISPI SC (05:05)
[2024-12-17] MEDS ORDERED: CHL12OR MT (05:09)
[2024-12-17 09:49] LABS: Basophils # (auto) 0.1 10 ^3/uL (0-0.2); Basophils % (auto) 1.2 % (0.0-2.0); Eosinophils # (auto) 0.3 10 ^3/uL (0-0.8); Eosinophils % (auto) 3.9 % (0.0-7.0); Hematocrit 35.4 % (36.0-46.0); Hemoglobin 10.9 g/dL (12.2-16.2); Lymphocytes # (auto) 1.5 10 ^3/uL (0.4-5.4); Lymphocytes % (auto) 21.6 % (10.0-50.0); Mean Corpuscular Hemoglobin 23.9 pg (28.0-32.0); Mean Corpuscular Hgb Conc. 30.8 g/dL (32.0-36.0); Mean Corpuscular Volume 77.5 fL (80.0-100.0); Monocytes # (auto) 0.7 10 ^3/uL (0-1.3); Monocytes % (auto) 9.7 % (0.0-12.0); Neutrophils # (auto) 4.3 10 ^3/uL (1.6-8.6); Neutrophils % (auto) 63.6 % (37.0-80.0); Nucleated Red Blood Cells % 0.1 %; Platelet Count (auto) 174 10^3/uL (140-450); Red Blood Cells 4.56 10^6/uL (4.0-5.20); Red Cell Distribution Width 19.1 % (11.8-14.3); White Blood Cell 6.8 10^3/uL (4.4-10.8)
[2024-12-17] MEDS ORDERED: INSULIN LANTUS (GLARGINE) 1 /0.01ml (100units/ml) SC SCH (10:00)
[2024-12-17] MEDS: amLODIPine BESYLATE 5 MG TAB PO SCH (10:24)
[2024-12-17] MEDS: INSULIN LANTUS (GLARGINE) 1 /0.01ml (100units/ml) SC SCH (10:42)
[2024-12-17 11:26] LABS: Alanine Aminotransferase 11 U/L (7-40); Alkaline Phosphatase 66 U/L (46-116); Anion Gap 13 (5-15); BUN/Creatinine Ratio 10.4 (10.0-20.0); Calcium 8.9 mg/dL (8.7-10.4); Chloride 105 mmol/L (98-107); Potassium 4.3 mmol/L (3.5-5.1)
[2024-12-17 11:27] LABS: Aspartate Aminotransferase 13 U/L (13-40); Bilirubin, Total 0.3 mg/dL (0.2-1.0); Blood Urea Nitrogen 8 mg/dL (9-23); Carbon Dioxide 17 mmol/L (20-31); Glucose 251 mg/dL (74-106); Sodium 135 mmol/L (136-145); Total Protein 6.1 g/dL (5.7-8.2)
--- NOTE | 2024-12-17 12:18 | DVHPN2 ---
Reviewed: Care Plan, H&P, Labs, Medications, Previous Orders, Radiology Changes from previous H/P or p: No Changes Eyes: No Pain, No Vision change, No Conjunctivae inflammation, No Eyelid inflammation, No Other, No Redness ENT: No Ear pain, No Ear discharge, No Nose pain, No Nose discharge, No Nose congestion, No Mouth pain, No Mouth swelling, No Throat pain, No Throat swelling, No Other Cardiovascular: No Chest Pain, No Palpitations, No Orthopnea, No Paroxysmal Noc. Dyspnea, No Edema, No Lt Headedness, No Other Respiratory: No Cough, No Dry, No Shortness of breath, No SOB with excertion, No Wheezing, No Hemoptysis, No Pleuritic Pain, No Sputum, No Other Gastrointestinal: Nausea, Vomiting, Abdominal Pain; No Diarrhea, No Constipation, No Melena, No Hematochezia, No Other Genitourinary: No Dysuria, No Frequency, No Incontinence, No Hematuria, No Retention, No Other Musculoskeletal: No other, No neck pain, No shoulder pain, No arm pain, No back pain, No hand pain, No leg pain, No foot pain Skin: No Rash, No Lesions, No Jaundice, No Bruising, No Other Objective Vitals Vital Signs Date Time Temp Pulse Resp B/P (MAP) Pulse Ox O2 Delivery O2 Flow Rate FiO2 12/17/24 10:24 137/67 12/17/24 09:00 97.9 80 18 100 97.9 12/17/24 04:13 Room Air* 0 21 Intake/Output Intake and Output 12/17/24 07:00 Intake Total 2585.725 ml Output Total 500 ml Balance 2085.725 ml Intake Oral 0 ml IV Total 2585.725 ml Output Urine Total 500 ml Medications Current Medications Medications Dose Ordered Sig/Genoveva Route Start Time Stop Time Status Last Admin Dose Admin Ondansetron HCl 4 mg Q4HP PRN IV 12/16/24 14:45 12/17/24 08:18 4 MG Docusate Sodium 100 mg BIDPRN PRN PO 12/16/24 14:45 Acetaminophen 650 mg Q6HP PRN PO 12/16/24 14:45 12/17/24 04:04 650 MG Nitroglycerin 0.4 mg Q5MINP PRN SL 12/16/24 14:45 Morphine Sulfate 2 mg Q30M PRN IV 12/16/24 14:45 Insulin Glargine 40 units DAILY SC 12/17/24 10:00 12/17/24 10:42 40 UNITS Amlodipine Besylate 10 mg DAILY PO 12/17/24 10:00 12/17/24 10:24 10 MG Metoclopramide HCl 10 mg Q8HPRN PRN IV 12/16/24 14:45 Metronidazole 100 ml @ 100 mls/hr Q8HR IV 12/16/24 14:45 12/17/24 05:28 100 MLS/HR Morphine Sulfate 2 mg Q4HPRN PRN IV 12/16/24 17:45 12/17/24 08:00 2 MG Diagnostic Test (Pha) 1 strip IQ4HR 12/17/24 00:00 12/17/24 12:06 1 STRIP Insulin Human Regular IQ4HR SC 12/17/24 00:00 12/17/24 08:17 8 UNITS Dextrose 50 ml UD PRN IV 12/16/24 23:45 Laboratory Results Laboratory Tests 12/17/24 08:12 Chemistry Test 12/16/24 15:00 12/16/24 18:57 12/16/24 23:30 12/17/24 08:12 Calcium Level 9.9 mg/dL (8.7-10.4) 9.0 mg/dL (8.7-10.4) 8.9 mg/dL (8.7-10.4) 8.9 mg/dL (8.7-10.4) Albumin 4.0 g/dL (3.2-4.8) Total Protein 6.1 g/dL (5.7-8.2) LFT Test 12/17/24 08:12 Alanine Aminotransferase (ALT) 11 U/L (7-40) Alkaline Phosphatase 66 U/L (46-116) Aspartate Amino Transferase (AST) 13 U/L (13-40) Total Bilirubin 0.3 mg/dL (0.2-1.0) Urinalysis Test 12/16/24 21:04 Urine Color Light-yellow (Yellow) Urine Clarity Clear (Clear) Urine pH 5.0 (5.0-9.0) Urine Specific [place] 1.017 (1.001-1.035) Urine Protein Trace (Negative) H Urine Ketones 4+ (Negative) H Urine Blood Negative /uL (Negative) Urine Nitrite Negative (Negative) Urine Bilirubin Negative (Negative) Urine Urobilinogen Normal mg/dL (Negative) Urine Leukocyte Esterase Trace /uL (Negative) Urine RBC 1 /hpf (0 - 4) Urine Microscopic WBC 7 /HPF (0-5) H Urine Squamous Epithelial Cells Few /hpf (<5) Urine Bacteria None seen /hpf (None Seen) Urine Mucus Few (None Seen) Urine Glucose 4+ mg/dL (Normal) H Blood Gas Results Test 12/16/24 12:55 Arterial Blood pH 7.308 (7.350-7.450) FiO2 % 21.0 Labs and/or images reviewed: Labs reviewed by me, Image(s) reviewed by me Assessment/Plan Assessment/Plan Acute diabetic ketoacidosis with blood glucose 568 and serum acetone of 4.5: Aggressive insulin sliding scale, Lantus 40 units daily Acute dehydration: IV fluids Acute abdominal pain with nausea and vomiting secondary to DKA, CT abdomen pelvis without contrast negative Hypertension: Amlodipine Will check serum beta HCG to rule out Plan discussed with: Patient Date of Service: Dec 17, 2024 Billing Provider: DOC GARCIA MD Common Visit Codes: [id number] INP/OBS CARE(HIGH) DOC GARCIA MD Dec 17, 2024 12:18
[2024-12-17] MEDS: SODIUM CHLORIDE 0.9% 1,000 ML IV SCH (12:45)
[2024-12-17] MEDS: METOCLOPRAMIDE HCL 5MG/ml INJ 2ml VIAL IV PRN (15:47)
[2024-12-17] MEDS: HYDROmorphone HCL 2 MG/ML VL/or syr IV PRN (15:49)
[2024-12-18 01:00] VITALS: BP 134/77; PULSE 74; RESP 18; TEMP 98.1; O2SAT 96
[2024-12-18] MEDS: hydrALAZINE HCL 20 MG/ML VL IV PRN (04:30)
[2024-12-18 05:00] VITALS: BP 172/72; PULSE 97; RESP 18; TEMP 98.8; O2SAT 99
[2024-12-18] MEDS: PANTOPRAZOLE 40 MG/10 ML VIAL INJ IV ONE (05:18)
[2024-12-18 08:00] VITALS: PULSE 102
[2024-12-18 09:00] VITALS: BP 155/69; PULSE 94; RESP 21; TEMP 97.4; O2SAT 100
[2024-12-18 09:33] LABS: Basophils # (auto) 0 10 ^3/uL (0-0.2); Eosinophils # (auto) 0 10 ^3/uL (0-0.8); Eosinophils % (auto) 0.2 % (0.0-7.0); Hemoglobin 11.9 g/dL (12.2-16.2); Lymphocytes % (auto) 4.9 % (10.0-50.0)
[2024-12-18 09:36] LABS: Basophils % (auto) 0.3 % (0.0-2.0); Hematocrit 38.6 % (36.0-46.0); Lymphocytes # (auto) 0.5 10 ^3/uL (0.4-5.4); Mean Corpuscular Hemoglobin 23.7 pg (28.0-32.0); Mean Corpuscular Hgb Conc. 30.8 g/dL (32.0-36.0); Mean Corpuscular Volume 76.9 fL (80.0-100.0); Monocytes # (auto) 0.5 10 ^3/uL (0-1.3); Monocytes % (auto) 5.2 % (0.0-12.0); Neutrophils # (auto) 8.2 10 ^3/uL (1.6-8.6); Neutrophils % (auto) 89.4 % (37.0-80.0); Platelet Count (auto) 204 10^3/uL (140-450); Red Blood Cells 5.02 10^6/uL (4.0-5.20); Red Cell Distribution Width 19.8 % (11.8-14.3); White Blood Cell 9.2 10^3/uL (4.4-10.8)
[2024-12-18 09:41] LABS: Anion Gap 18 (5-15)
[2024-12-18 09:42] LABS: Calcium 9.5 mg/dL (8.7-10.4)
[2024-12-18] MEDS ORDERED: LACTATED RINGER'S 1,000 ML IV ONE (09:45)
[2024-12-18 09:47] LABS: Carbon Dioxide 18 mmol/L (20-31); Chloride 97 mmol/L (98-107); Potassium 3.2 mmol/L (3.5-5.1); Sodium 133 mmol/L (136-145)
[2024-12-18 09:48] LABS: BUN/Creatinine Ratio 6.8 (10.0-20.0); Blood Urea Nitrogen < 5 mg/dL (9-23); Glucose 287 mg/dL (74-106)
--- NOTE | 2024-12-18 09:52 | DVHPN2 ---
Reviewed: Care Plan, H&P, Labs, Medications, Previous Orders, Radiology Changes from previous H/P or p: No Changes Eyes: No Pain, No Vision change, No Conjunctivae inflammation, No Eyelid inflammation, No Other, No Redness ENT: No Ear pain, No Ear discharge, No Nose pain, No Nose discharge, No Nose congestion, No Mouth pain, No Mouth swelling, No Throat pain, No Throat swelling, No Other Cardiovascular: No Chest Pain, No Palpitations, No Orthopnea, No Paroxysmal Noc. Dyspnea, No Edema, No Lt Headedness, No Other Respiratory: No Cough, No Dry, No Shortness of breath, No SOB with excertion, No Wheezing, No Hemoptysis, No Pleuritic Pain, No Sputum, No Other Gastrointestinal: Nausea, Vomiting, Abdominal Pain; No Diarrhea, No Constipation, No Melena, No Hematochezia, No Other Genitourinary: No Dysuria, No Frequency, No Incontinence, No Hematuria, No Retention, No Other Musculoskeletal: No other, No neck pain, No shoulder pain, No arm pain, No back pain, No hand pain, No leg pain, No foot pain Skin: No Rash, No Lesions, No Jaundice, No Bruising, No Other Objective Vitals Vital Signs Date Time Temp Pulse Resp B/P (MAP) Pulse Ox O2 Delivery O2 Flow Rate FiO2 12/18/24 05:00 98.8 97 18 172/72 (105) 99 98.8 12/17/24 20:00 Room Air* 0 21 Intake/Output Intake and Output 12/18/24 07:00 Intake Total 1100 ml Balance 1100 ml Intake Oral 500 ml IV Total 600 ml # Voids 5 # Bowel Movements 2 Medications Current Medications Medications Dose Ordered Sig/Genoveva Route Start Time Stop Time Status Last Admin Dose Admin Ondansetron HCl 4 mg Q4HP PRN IV 12/16/24 14:45 12/18/24 03:55 4 MG Docusate Sodium 100 mg BIDPRN PRN PO 12/16/24 14:45 Acetaminophen 650 mg Q6HP PRN PO 12/16/24 14:45 12/17/24 04:04 650 MG Nitroglycerin 0.4 mg Q5MINP PRN SL 12/16/24 14:45 Insulin Glargine 40 units DAILY SC 12/17/24 10:00 12/17/24 10:42 40 UNITS Amlodipine Besylate 10 mg DAILY PO 12/17/24 10:00 12/17/24 10:24 10 MG Metoclopramide HCl 10 mg Q8HPRN PRN IV 12/16/24 14:45 12/18/24 04:47 10 MG Metronidazole 100 ml @ 100 mls/hr Q8HR IV 12/16/24 14:45 12/18/24 05:12 100 MLS/HR Diagnostic Test (Pha) 1 strip IQ4HR 12/17/24 00:00 12/18/24 08:00 1 STRIP Insulin Human Regular IQ4HR SC 12/17/24 00:00 12/17/24 12:00 4 UNITS Dextrose 50 ml UD PRN IV 12/16/24 23:45 Hydralazine HCl 10 mg Q6HP PRN IV 12/18/24 04:30 12/18/24 04:30 10 MG Pantoprazole Sodium 40 mg DAILY IV 12/18/24 10:00 Laboratory Results Laboratory Tests 12/18/24 09:00 Chemistry Test 12/18/24 09:00 Calcium Level 9.5 mg/dL (8.7-10.4) Urinalysis Test 12/16/24 21:04 Urine Color Light-yellow (Yellow) Urine Clarity Clear (Clear) Urine pH 5.0 (5.0-9.0) Urine Specific [place] 1.017 (1.001-1.035) Urine Protein Trace (Negative) H Urine Ketones 4+ (Negative) H Urine Blood Negative /uL (Negative) Urine Nitrite Negative (Negative) Urine Bilirubin Negative (Negative) Urine Urobilinogen Normal mg/dL (Negative) Urine Leukocyte Esterase Trace /uL (Negative) Urine RBC 1 /hpf (0 - 4) Urine Microscopic WBC 7 /HPF (0-5) H Urine Squamous Epithelial Cells Few /hpf (<5) Urine Bacteria None seen /hpf (None Seen) Urine Mucus Few (None Seen) Urine Glucose 4+ mg/dL (Normal) H Microbiology Microbiology Date/Time Source Procedure Growth Status 12/17/24 04:30 Nose MRSA Screen - Final Complete Labs and/or images reviewed: Labs reviewed by me, Image(s) reviewed by me Assessment/Plan Assessment/Plan Acute diabetic ketoacidosis with blood glucose 568 and serum acetone of 4.5: Aggressive insulin sliding scale, Lantus 40 units daily Acute dehydration: IV fluids Uncontrolled type 1 diabetes Acute abdominal pain with nausea and vomiting secondary to DKA, CT abdomen pelvis without contrast negative Hypertension: Amlodipine ruled out Marijuana abuse Acute dehydration: LR 1 L bolus and 100 mL per hour Intractable nausea and vomiting GI consult by Dr. Sapna Vaughan, will check urine drug screen Plan discussed with: Patient My Orders Orders - DOC GARCIA MD Procedure Category Date Status Time Lactic Acid W/ Reflex LAB 12/18/24 In Process Order 09:10 Drug Screen LAB 12/18/24 Logged 09:37 Blood Alcohol LAB 12/18/24 In Process 09:37 Lactated Ringer's PHA 12/18/24 Logged 09:45 Lactated Ringer's PHA 12/18/24 Logged 09:45 * [facility] [employer] CONS 12/18/24 Transmitted 09:41 Date of Service: Dec 18, 2024 Billing Provider: DOC GARCIA MD Common Visit Codes: [id number] INP/OBS CARE(HIGH) DOC GARCIA MD Dec 18, 2024 09:52
[2024-12-18] MEDS: PANTOPRAZOLE 40 MG/10 ML VIAL INJ IV SCH (09:57)
[2024-12-18 10:05] LABS: Lactic Acid w/Reflex 2.2 mmol/L (0.4-2.0)
[2024-12-18] MEDS: LACTATED RINGER'S 1,000 ML IV ONE (11:30)
--- NOTE | 2024-12-18 12:19 | DVHINCON2 ---
GI Consult Consult Note GI consult note Date of Consultation: 12/18/2024 Chief Complaint: Intractable nausea and vomiting Referring Physician: Dr. Keisha Garcia H&P: 39-year-old female admitted with abdominal pain, mostly in the epigastric area, for four days now Patient has history of GERD and gastroparesis Patient has nausea and vomiting, mostly bile. No hematemesis Patient is having loose stool and diarrhea at this time, dark in color. No red blood in stool Last EGD 2018 diagnosed with gastroparesis Status post mouth surgery with bone grafts on each side, one-week ago. And treated with amoxicillin and Flagyl Past Medical History: DM, HTN irregular heart beat, gastroparesis Past Surgical History: BTL, Social History: Smoker: Non-Smoker Alcohol: Heavy Drugs: Marijuana Lives In: Home Family History: Noncontributory Review of Systems: Constitutional: no fever, chill, weight loss HEENT: no eye pain, no hearing loss, no oral lesion, no scleral icterus Heart: no chest pain, no chest pressure Lung: no cough, no dyspnea with exertion Abdomen: see HPI Physical exam: General: NAD, AAOX3 HEENT: gums without bleeding Chest: lung [place] clear to auscultation Heart: RRR, no murmur Abdomen: Epigastric tenderness to palpation, +BS Labs: Chemistry Test 12/18/24 09:00 Calcium Level 9.5 mg/dL (8.7-10.4) Urinalysis Test 12/16/24 21:04 Urine Color Light-yellow (Yellow) Urine Clarity Clear (Clear) Urine pH 5.0 (5.0-9.0) Urine Specific [place] 1.017 (1.001-1.035) Urine Protein Trace (Negative) H Urine Ketones 4+ (Negative) H Urine Blood Negative /uL (Negative) Urine Nitrite Negative (Negative) Urine Bilirubin Negative (Negative) Urine Urobilinogen Normal mg/dL (Negative) Urine Leukocyte Esterase Trace /uL (Negative) Urine RBC 1 /hpf (0 - 4) Urine Microscopic WBC 7 /HPF (0-5) H Urine Squamous Epithelial Cells Few /hpf (<5) Urine Bacteria None seen /hpf (None Seen) Urine Mucus Few (None Seen) Urine Glucose 4+ mg/dL (Normal) H Microbiology Microbiology Date/Time Source Procedure Growth Status 12/17/24 04:30 Nose MRSA Screen - Final Complete Labs and/or images reviewed: Labs reviewed by me, Image(s) reviewed by me Imaging: CT abdomen pelvis IMPRESSION: 1. There is no acute process in the abdomen and pelvis. 2. Stable 3 mm nodule in the inferior right middle lobe. Assessment: DKA Intractable nausea and vomiting Dehydration History of marijuana use History of GERD Gastroparesis Diarrhea Plan: Discussed with Dr. Vaughan Reglan 5 mg IV every 8 hours DC Flagyl Consider using Phenergan 12.5 mg every 8 hours if needed Stool for C diff and culture Supportive care recommended at this time We will continue to monitor the patient Thank you for this consult Date of Service: Dec 18, 2024 Billing Provider: SHELIA GARCIA Common Visit Codes: CONSULT ONLY Consultation Codes: [id number] CONSULT <60MIN SHELIA GARCIA Dec 18, 2024 12:19
[2024-12-18 13:00] VITALS: BP 153/73; PULSE 99; RESP 21; TEMP 97.7; O2SAT 94
[2024-12-18] MEDS ORDERED: PROMETHAZINE HCL 6.25 MG/5 ML ORAL SYRUP PO PRN (15:30)
[2024-12-18 16:58] VITALS: BP 153/75; PULSE 108; RESP 24; TEMP 97.6; O2SAT 100
--- NOTE | 2024-12-19 07:54 | DVHDS2 ---
Discharge Summary Date of Admission Dec 16, 2024 at 14:35 Date of Discharge: Dec 18, 2024 Admitting Diagnosis Diabetic ketoacidosis Wounds: None Labs/Diagnostic Data: Laboratory Results Test 12/18/24 16:01 12/18/24 11:00 12/18/24 09:00 12/17/24 08:13 POC Glucose 171 mg/dl (70-106) Lactic Acid Level 2.1 mmol/L (0.4-2.0) White Blood Count 9.2 10^3/uL (4.4-10.8) Red Blood Count 5.02 10^6/uL (4.0-5.20) Hemoglobin 11.9 g/dL (12.2-16.2) Hematocrit 38.6 % (36.0-46.0) Mean Corpuscular Volume 76.9 fL (80.0-100.0) Mean Corpuscular Hemoglobin 23.7 pg (28.0-32.0) Mean Corpuscular Hemoglobin Concent 30.8 g/dL (32.0-36.0) Red Cell Distribution Width 19.8 % (11.8-14.3) Platelet Count 204 10^3/uL (140-450) Mean Platelet Volume 9.9 fL (6.9-10.8) Neutrophils (%) (Auto) 89.4 % (37.0-80.0) Lymphocytes (%) (Auto) 4.9 % (10.0-50.0) Monocytes (%) (Auto) 5.2 % (0.0-12.0) Eosinophils (%) (Auto) 0.2 % (0.0-7.0) Basophils (%) (Auto) 0.3 % (0.0-2.0) Neutrophils # (Auto) 8.2 10 ^3/uL (1.6-8.6) Lymphocytes # (Auto) 0.5 10 ^3/uL (0.4-5.4) Monocytes # (Auto) 0.5 10 ^3/uL (0-1.3) Eosinophils # (Auto) 0 10 ^3/uL (0-0.8) Basophils # (Auto) 0 10 ^3/uL (0-0.2) Nucleated Red Blood Cells 0.0 % Sodium Level 133 mmol/L (136-145) Potassium Level 3.2 mmol/L (3.5-5.1) Chloride Level 97 mmol/L (98-107) Carbon Dioxide Level 18 mmol/L (20-31) Anion Gap 18 (5-15) Blood Urea Nitrogen < 5 mg/dL (9-23) Creatinine 0.74 mg/dL (0.550-1.02) Glomerular Filtration Rate Calc 104 mL/min (>90) BUN/Creatinine Ratio 6.8 (10.0-20.0) Serum Glucose 287 mg/dL (74-106) Calcium Level 9.5 mg/dL (8.7-10.4) Plasma/Serum Blood Alcohol 3.4 mg/dL (<10) Beta HCG, Quantitative 0.7 mIU/mL (1.5-4.2) Test 12/17/24 08:12 12/16/24 21:04 12/16/24 12:55 12/16/24 10:52 Total Bilirubin 0.3 mg/dL (0.2-1.0) Aspartate Amino Transferase (AST) 13 U/L (13-40) Alanine Aminotransferase (ALT) 11 U/L (7-40) Alkaline Phosphatase 66 U/L (46-116) Total Protein 6.1 g/dL (5.7-8.2) Albumin 4.0 g/dL (3.2-4.8) Beta-Hydroxybutyric Acid 4.270 mmol/L (< 0.4) Urine Color Light-yellow (Yellow) Urine Clarity Clear (Clear) Urine pH 5.0 (5.0-9.0) Urine Specific [place] 1.017 (1.001-1.035) Urine Protein Trace (Negative) Urine Ketones 4+ (Negative) Urine Blood Negative /uL (Negative) Urine Nitrite Negative (Negative) Urine Bilirubin Negative (Negative) Urine Urobilinogen Normal mg/dL (Negative) Urine Leukocyte Esterase Trace /uL (Negative) Urine RBC 1 /hpf (0 - 4) Urine Microscopic WBC 7 /HPF (0-5) Urine Squamous Epithelial Cells Few /hpf (<5) Urine Bacteria None seen /hpf (None Seen) Urine Mucus Few (None Seen) Urine Glucose 4+ mg/dL (Normal) Blood Gas Specimen Type Arterial Blood Gas Sample Site Left radial Blood Gas Patient Temperature 37.0 Arterial Blood Date Drawn Arterial Blood pH 7.308 (7.350-7.450) Arterial Blood Partial Pressure CO2 22.4 mmHg (32.0-45.0) Arterial Blood Partial Pressure O2 102.0 mmHg (83.0-108.0) Arterial Blood HCO3 11.0 mmol/L (21.0-28.0) Arterial Blood Oxygen Saturation 97.1 % (94.0-98.0) Arterial Blood Base Excess -13.5 mmol/L (-2.0-3.0) Arterial Blood Oxyhemoglobin 95.9 % (94.0-98.0) Arterial Blood Carboxyhemoglobin 0.3 % (0.5-1.5) Arterial Blood Methemoglobin 0.9 % (0.0-1.5) Jose Rafael Test Yes Blood Gas Total Hemoglobin 11.60 g/dL (12.0-16.0) Blood Gas Liter Flow 0.00 Blood Gas Modality Room air FiO2 % 21.0 Lipase 23 U/L (12-53) Other Laboratory Tests 12/18/24 09:00 Brief Hx & Hospital Course: 39-year-old female with a uncontrolled diabetes type 1 on insulin at home brought him to the ER for altered mental status weakness and confusion found to have diabetic ketoacidosis with blood glucose of 568 and acetone of 4.5 treated with the insulin drip and aggressive sliding scale and IV fluids patient had intractable nausea and vomiting CT abdomen pelvis without contrast was negative ruled out patient is chronic marijuana abuse counseled dehydration treated with the IV fluids GI consult by Dr. Sapna Vaughan advised change Zofran to Phenergan for nausea. Patient continued to have vomiting while in the hospital. While being stabilized patient decided to leave AMA and left AMA. Patient was advised about consequences and complications of leaving AMA including possible and patient verbalized understanding. General condition satisfactory at the time of leaving AMA per nurse's notes Consults/Reason for consult GI Dr. Sapna Vaughan Operations or Procedures CT abdomen pelvis without contrast Condition at Discharge: Fair Final Diagnosis/Problems List Acute diabetic ketoacidosis with blood glucose 568 and serum acetone of 4.5: Aggressive insulin sliding scale, Lantus 40 units daily Acute dehydration: IV fluids Uncontrolled type 1 diabetes Acute abdominal pain with nausea and vomiting secondary to DKA, CT abdomen pelvis without contrast negative Hypertension: Amlodipine ruled out Marijuana abuse Acute dehydration: LR 1 L bolus and 100 mL per hour Intractable nausea and vomiting GI consult by Dr. Sapna Vaughan, will check urine drug screen Discharge Disposition: AMA Discharge Instruct/Medications Diet comment: Not applicable Patient left AMA Activity comment: Not applicable Patient left AMA Follow Up/Referral: Not applicable Patient left AMA Medications: Not applicable Patient left AMA 39 (Time taken for discharge summary 39 minutes) Discharge Statement: "Patient was advised to return to the ER or call 911 if any headaches, dizziness, shortness of breath, chest pain, abdominal pain, bleeding, fevers, or worsening of medical condition. Patient was counseled about treatment plan, medications, possible side effects, patientverbalized understanding. All questions were answered to the best of my ability. This discharge took greater then 30 minutes in planning, reviewing documentation, counseling the patient, and discussing with other team members." ASSESSMENT ASSESSMENT Hospital Course Slightly improved Assessment Date of Service: Dec 19, 2024 Billing Provider: DOC GARCIA MD Common Visit Codes: [id number] DISCH DAY >30min DOC GARCIA MD Dec 19, 2024 07:54
== END 2024-12-18 19:00 | disposition left against medical advice (07) | DRG 420 ==
LOC: EDBD 10:39 → ER 10:39 → EDSEX 10:39 → OVERFLOW 14:35 → TELE-EAST 12-17 03:33
PROVIDERS: ADMIT Nurse Practitioner Family; ATTEND Family Medicine
DX: E10.10 Type 1 diabetes mellitus with ketoacidosis without coma (principal); N17.0 Acute kidney failure with tubular necrosis; E10.43 Type 1 diabetes mellitus with diabetic autonomic (poly)neuropathy; K31.84 Gastroparesis; E86.0 Dehydration; I10 Essential (primary) hypertension; F12.10 Cannabis abuse, uncomplicated; Z53.29 Procedure and treatment not carried out because of patient's decision for other reasons; Z79.4 Long term (current) use of insulin; Z88.5 Allergy status to narcotic agent; Z98.891 History of uterine scar from previous surgery
CPT/HCPCS: 36415; 36600; 74176; 80048; 80053; 80320; 81001; 82010; 82805; 82962; 83605; 83690; 84702; 85025; 87045; 87081; 87427; 87493; 99291; G0378; J1815; J2405; J2470; J3480; J3490

== ENCOUNTER 2024-12-20 02:35 | Emergency (ER) | payer MEDICAID ==
[~2024-12-20] VITALS: Ht 175.3 cm; Wt 76.3 kg
[~2024-12-20 02:35] MED LIST changes: +AMLO1TAB23 PO; +CHL12OR MT; +INSLANTI SC; +INSLISPI SC
[2024-12-20 02:39] VITALS: BP 155/83; PULSE 101; RESP 18; O2SAT 99
== END 2024-12-20 09:21 | disposition left against medical advice (07) ==
LOC: EDBD 02:35 → ER 02:35
DX: R11.2 Nausea with vomiting, unspecified (principal); R19.7 Diarrhea, unspecified; Z53.21 Procedure and treatment not carried out due to patient leaving prior to being seen by health care provider

== ENCOUNTER 2025-03-16 04:34 | Inpatient (IN) | payer MEDICAID ==
[~2025-03-16] VITALS: Ht 170.2 cm; Wt 72.5 kg
[~2025-03-16 04:34] MED LIST changes: -PANT40TA2 PO; -ZOFR4T PO
[2025-03-16 04:59] LABS: Urine Bacteria None Seen /hpf (None Seen)
[2025-03-16] MEDS: SODIUM CHLORIDE 0.9% 1,000 ML IV ONE ×4 (05:05→10:30)
[2025-03-16 05:09] VITALS: PULSE 100; RESP 16; O2SAT 97
[2025-03-16 05:33] LABS: Urine Blood 3+ /uL (Negative); Urine Clarity Clear (Clear); Urine Color Colorless (Yellow); Urine Protein, UAD Negative (Negative); Urine Specific Gravity 1.019 (1.001-1.035); Urine Squamous Epithelial Cell FEW /hpf (<5); Urine Urobilinogen Normal (Negative)
[2025-03-16] MEDS: ACETAMINOPHEN 325 MG TAB PO ONE (05:45)
[2025-03-16 05:55] LABS: Urine WBC < 1 /HPF (0-5)
[2025-03-16] MEDS: ONDANSETRON HCL 4 MG/2 ML VIAL IV ONE (06:45)
[2025-03-16] MEDS: MORPHINE SULFATE 4 MG/ML SYR/VIAL IV ONE (06:46)
--- NOTE | 2025-03-16 06:49 | ED.PDOC ---
History of Present Illness HPI Comments 39-year-old female presents with a chief complaint of abdominal pain, nausea and vomiting x onset (03/11/2025). Patient mentions that her pain is diffuse in her abdomen region, nonradiating, describes as aching, and rates her pain a 8/10. 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 Patient is requesting to be transferred to a [facility] facility, although she was already seen at [facility] and discharged home. Patient denies any diarrhea, rectal bleeding, or hematemesis. No other symptoms or modifying factors present at this time. Chief Complaint: Hyperglycemia Time Seen by MD: 06:34 Primary Care Provider: ITZLE Reviewed Notes: Medications, Allergies Allergies: Coded Allergies: Hydrocodone (Verified Allergy, Unknown, 09/21/20) Lisinopril (Verified Allergy, Unknown, 05/28/24) Uncoded Allergies: DEMEROL (Allergy, Unknown, 08/27/18) Home Meds Reported Medications Chlorhexidine Gluconate (Mouth (CHLORHEXIDINE ORAL RINSE) 473 Ml So, 15 ML MT Q12HR, ML 12/17/24 Insulin Lispro (Human) (Humalog) 100 Unit/Ml Inj, 100 UNIT SC, INJ 12/17/24 Insulin Glargine (Lantus) 100 Unit/Ml Inj, 40 UNITS SC DAILY 12/16/24 Amlodipine Besylate (Amlodipine Besylate) 10 Mg Tab, 1 TAB PO DAILY 12/16/24 Information Source: Patient Mode of Arrival: EMS Severity: Moderate Timing: Days Duration: Since onset Prehospital treatment: None Past Medical History PAST MEDICAL HISTORY: DM, HTN Surgical History: BTL, CHILD CARE WORKER History: No Pertinent CHILD CARE WORKER History Family History Family History: Unknown Social History Smoker: Non-Smoker Alcohol: Heavy Drugs: Marijuana Lives In: Home Constitutional: denies: chills, diaphoresis, fatigue, fever, malaise, sweats, weakness, others EENTM: denies: blurred vision, double vision, ear bleeding, ear discharge, ear drainage, ear pain, ear ringing, eye pain, eye redness, hearing loss, mouth pain, mouth swelling, nasal discharge, nose bleeding, nose congestion, nose pain, photophobia, tearing, throat pain, throat swelling, voice changes, others Respiratory: denies: cough, hemoptysis, orthopnea, SOB at rest, shortness of breath, SOB with excertion, stridor, wheezing, others Cardiovascular: denies: chest pain, dizzy spells, diaphoresis, Dyspnea on exertion, edema, irregular heart beat, left arm pain, lightheadedness, palpitations, PND, syncope, others Gastrointestinal: reports: abdominal pain, nausea, vomiting; denies: abdomen d istended, blood streaked bowels, constipated, diarrhea, dysphagia, difficulty swallowing, hematemesis, melena, poor appetite, poor fluid intake, rectal bleeding, rectal pain, others Genitourinary: denies: abnormal vagina bleeding, burning, dyspareunia, dysuria, flank pain, frequency, hematuria, incontinence, pain, , vagina discharge, urgency, others Neurological: denies: dizziness, fainting, headache, left sided numbness, left sided weakness, numbness, paresthesia, pre-existing deficit, right sided numbness, right sided weakness, seizure, speech problems, tingling, tremors, weakness, others Musculoskeletal: denies: back pain, gout, joint pain, joint swelling, muscle pain, muscle stiffness, neck pain, others Integumetry: denies: bruises, change in color, change in hair/nails, dryness, laceration, lesions, lumps, rash, wounds, others Allergic/Immunocompromised: denies: Difficulty Healing, Frequent Infections, Hives, Itching, others Hematologic/Lymphatic: denies: anemia, blood clots, easy bleeding, easy bruising, swollen glands, others Endocrine: denies: excessive hunger, excessive sweating, excessive thirst, excessive urination, flushing, intolerance to cold, intolerance to heat, unexplained weight gain, unexplained weight loss, others Psychiatric: denies: anxiety, bipolar disorder, depression, hopeless, panic disorder, schizophrenia, sleepless, suicidal, others All Other Systems: Reviewed and Negative Physical Exam General Appearance: Moderate Distress, Normal HEENT: Normal ENT Inspection, Pharynx Normal, TMs Normal Neck: Full Range of Motion, Non-Tender, Normal, Normal Inspection Respiratory: Chest Non-Tender, Lungs Clear, No Accessory Muscle Use, No Respiratory Distress, Normal Breath Sounds Cardiovascular: No Edema, No JVD, No Murmur, No Gallop, Normal Peripheral Pulses, Regular Rate/Rhythm Breast Exam: Deferred Gastrointestinal: No Organomegaly, Non Tender, No Pulsatile Mass, Normal Bowel Sounds, Soft Genitalia: Deferred Pelvic: Deferred Rectal: Deferred Extremities: No calf tenderness, Normal capillary refill, Normal inspection, Normal range of motion, Non-tender, No pedal edema Musculoskeletal : Apperance: Normal Neurologic: Alert, edgerman II-XII nml as Tested, No Motor Deficits, Normal Affect, Normal Mood, No Sensory Deficits Cerebellar Function: Normal Reflexes: Normal Skin: Dry, Normal Color, Warm Peripheral Pulses: 3+ Radial (R), 3+ Radial (L) Lymphatic: No Adenopathy Was a procedure done? Was a procedure done?: No Differential Dx Considerations may include: Gastroenteritis Electrolyte imbalance X-Ray, Labs, Meds, VS Vital Signs Date Time Temp Pulse Resp B/P (MAP) Pulse Ox O2 Delivery O2 Flow Rate FiO2 03/16/25 08:03 105 16 100 Room Air* 0 21 03/16/25 08:03 105 16 144/65 (91) 100 03/16/25 08:00 105 16 144/65 03/16/25 06:46 74 18 120/65 03/16/25 05:09 98.3 100 18 148/71 (96) 100 98.3 03/16/25 05:09 100 16 97 Room Air* 0 21 03/16/25 04:40 119 03/16/25 04:35 98.3 120 18 148/71 (96) 100 98.3 Lab Test 03/16/25 09:47 03/16/25 08:30 03/16/25 07:35 03/16/25 07:03 Range/Units Blood Gas Specimen Type Arterial Blood Gas Sample Site Right radial Blood Gas Patient Temperature 37.0 Arterial Blood Date Drawn [id number] Arterial Blood pH 7.232 *L 7.350-7.450 Arterial Blood Partial Pressure CO2 16.9 *L 32.0-45.0 mmHg Arterial Blood Partial Pressure O2 124.9 H 83.0-108.0 mmHg Arterial Blood HCO3 7.0 L 21.0-28.0 mmol/L Arterial Blood Oxygen Saturation 98.3 H 94.0-98.0 % Arterial Blood Base Excess -18.5 L -2.0-3.0 mmol/L Arterial Blood Oxyhemoglobin 97.3 94.0-98.0 % Arterial Blood Carboxyhemoglobin 0.3 L 0.5-1.5 % Arterial Blood Methemoglobin 0.7 0.0-1.5 % Jose Rafael Test Yes Blood Gas Total Hemoglobin 10.60 L 12.0-16.0 g/dL Blood Gas Modality Room air FiO2 % 21.0 Blood Gas Critical Value Read Back yes Blood Gas Notified Whom pedro salazar md Blood Gas Notified Time [id number] Blood Gas Notified By dale mauricio Potassium Level 5.4 H 5.4 H 3.5-5.1 mmol/L Beta-Hydroxybutyric Acid Pending POC Glucose 264 H 70-106 mg/dl White Blood Count 13.7 H 4.4-10.8 10^3/uL Red Blood Count 4.43 4.0-5.20 10^6/uL Hemoglobin 9.7 L 12.2-16.2 g/dL Hematocrit 33.3 L 36.0-46.0 % Mean Corpuscular Volume 75.3 L 80.0-100.0 fL Mean Corpuscular Hemoglobin 21.9 L 28.0-32.0 pg Mean Corpuscular Hemoglobin Concent 29.0 L 32.0-36.0 g/dL Red Cell Distribution Width 18.8 H 11.8-14.3 % Platelet Count 288 140-450 10^3/uL Mean Platelet Volume 9.9 6.9-10.8 fL Neutrophils (%) (Auto) 87.8 H 37.0-80.0 % Lymphocytes (%) (Auto) 4.9 L 10.0-50.0 % Monocytes (%) (Auto) 6.9 0.0-12.0 % Eosinophils (%) (Auto) 0.0 0.0-7.0 % Basophils (%) (Auto) 0.4 0.0-2.0 % Neutrophils # (Auto) 12.0 H 1.6-8.6 10 ^3/uL Lymphocytes # (Auto) 0.7 0.4-5.4 10 ^3/uL Monocytes # (Auto) 0.9 0-1.3 10 ^3/uL Eosinophils # (Auto) 0 0-0.8 10 ^3/uL Basophils # (Auto) 0.1 0-0.2 10 ^3/uL Nucleated Red Blood Cells 0.0 % Sodium Level 131 L 136-145 mmol/L Chloride Level 102 98-107 mmol/L Carbon Dioxide Level 11 L 20-31 mmol/L Anion Gap 18 H 5-15 Blood Urea Nitrogen 10 9-23 mg/dL Creatinine 1.11 H 0.550-1.02 mg/dL Glomerular Filtration Rate Calc 64 >90 mL/min BUN/Creatinine Ratio 9.0 L 10.0-20.0 Serum Glucose 296 H 74-106 mg/dL Calcium Level 9.4 8.7-10.4 mg/dL Test 03/16/25 04:59 Range/Units Urine Color Colorless Yellow Urine Clarity Clear Clear Urine pH 5.0 5.0-9.0 Urine Specific [place] 1.019 1.001-1.035 Urine Protein Negative Negative Urine Ketones 4+ H Negative Urine Blood 3+ H Negative /uL Urine Nitrite Negative Negative Urine Bilirubin Negative Negative Urine Urobilinogen Normal Negative mg/dL Urine Leukocyte Esterase Negative Negative /uL Urine RBC 14 0 - 4 /hpf Urine Microscopic WBC < 1 0-5 /HPF Urine Squamous Epithelial Cells Few <5 /hpf Urine Bacteria None seen None Seen /hpf Urine Glucose 4+ H Normal mg/dL Current Medications Medications (Trade) Dose Ordered Sig/Genoveva Route Start Time Stop Time Status Last Admin Sodium Chloride 1,000 ml @ 1,000 mls/hr Q1H ONCE IV 03/16/25 05:00 03/16/25 05:59 DC 03/16/25 05:05 Morphine Sulfate 4 mg ONCE ONCE IV 03/16/25 06:45 03/16/25 06:46 DC 03/16/25 06:46 Ondansetron HCl (Zofran) 4 mg ONCE ONCE IV 03/16/25 06:45 03/16/25 06:46 DC 03/16/25 06:45 Sodium Chloride 1,000 ml @ 1,000 mls/hr Q1H ONCE IV 03/16/25 06:45 03/16/25 07:44 DC 03/16/25 06:46 Patient alert. Complaining of nausea vomiting. Vitals stable. Answering questions. Urinalysis shows ketones. Establish intravenous access. Was given fluids. Was given morphine. Was given Zofran. Reviewed her previous visit. She was a [facility]. Explained to the patient that she will be admitted for hyperkalemia spoke with [facility] facility for inpatient admission continue fluids monitoring sugar. She was told to stop smoking marijuana. CO2 shows acidosis. She is in DKA. ABG does show acidosis. [facility] approved inpatient admission [id number]. Time of 1ST Reevaluation: 07:04 (EXPLAINED TO THE PATIENT THAT THEY MAY BE STAYING WITH US IN THE HOSPITAL, BUT IF STABLE FOR DISCHARGE HOME, THEY WILL BE NOTIFIED. ) Reevaluation 1ST: Unchanged Patient Education/Counseling: Diagnosis, Treatment Family Education/Counseling: No Family Present Departure 1 Departure Time of Disposition: 07:19 Impression: Primary Impression: Diabetic ketoacidosis Qualified Codes: E13.11 - Other specified diabetes mellitus with ketoacidosis with coma Additional Impressions: Uncontrolled diabetes mellitus Qualified Codes: E13.65 - Other specified diabetes mellitus with hyperglycemia Dehydration Cyclical vomiting Hyperkalemia Disposition: ADMITTED INPATIENT Admit to: Med Surg Condition: Guarded Discharged With: Self Comments 09:06 - SPOKE WITH THE PATIENT ABOUT THE LABORATORY RESULTS/FINDINGS AND THAT WE WILL BE CONTACTING [facility] FOR TRANSFER FOR CONTINUATION OF CARE. PATIENT IS IN AGREEMENT WITH THE PLAN OF CARE. Critical Care Note Critical Care Time?: Yes (90 min-critical care time only) Critical care comment: Hyperkalemia DKA Stability Stability form required: No Heart Score Heart Score: Heart Score Response (Comments) Value History N/A 0 EKG N/A 0 Age N/A 0 Risk Factors N/A 0 Troponin N/A 0 Total 0 I personally scribed for IAIN SALAZAR MD ([email or web address]) on 03/16/25 at 06:49. Electronically submitted by Sabas Britt ([email or web address]). I personally scribed for IAIN SALAZAR MD ([email or web address]) on 03/16/25 at 09:09. Electronically submitted by Sabas Britt ([email or web address]). IAIN SALAZAR MD March 16, 2025 06:49
--- NOTE | 2025-03-16 07:03 | ECG ---
[facility] Test Date: 2025-03-16 Test Time: 04:40:46 Pat Name: MAURO GRIMALDO Department: ED Room: 0286T Gender: F Director [employer]: DANIEL : 1985 Requested By: EMERGENCY EMERGENCY Order Number: [id number] Reading MD: Damaso Fallon Measurements Intervals [place] Rate: 119 P: 87 AL: 175 QRS: 85 QRSD: 108 T: 60 QT: 324 QTc: 456 Interpretive Statements Sinus tachycardia Right atrial enlargement Anteroseptal infarct, old Electronically Signed On 03-17-2025 12:47:36 PDT by Damaso Fallon Please click the below link to view image of tracing.
[2025-03-16 07:57] LABS: Chloride 102 mmol/L (98-107)
[2025-03-16 07:58] LABS: Anion Gap 18 (5-15); Calcium 9.4 mg/dL (8.7-10.4)
[2025-03-16 08:03] VITALS: PULSE 105; RESP 16; O2SAT 100
[2025-03-16 08:03] LABS: Blood Urea Nitrogen 10 mg/dL (9-23)
[2025-03-16 08:04] LABS: Carbon Dioxide 11 mmol/L (20-31); Glucose 296 mg/dL (74-106); Potassium 5.4 mmol/L (3.5-5.1); Sodium 131 mmol/L (136-145)
[2025-03-16 09:19] LABS: Eosinophils # (auto) 0 10 ^3/uL (0-0.8); Hemoglobin 9.7 g/dL (12.2-16.2); Lymphocytes # (auto) 0.7 10 ^3/uL (0.4-5.4); Monocytes # (auto) 0.9 10 ^3/uL (0-1.3)
[2025-03-16 09:21] LABS: Basophils # (auto) 0.1 10 ^3/uL (0-0.2); Basophils % (auto) 0.4 % (0.0-2.0); Hematocrit 33.3 % (36.0-46.0); Lymphocytes % (auto) 4.9 % (10.0-50.0); Mean Corpuscular Hemoglobin 21.9 pg (28.0-32.0); Mean Corpuscular Volume 75.3 fL (80.0-100.0); Monocytes % (auto) 6.9 % (0.0-12.0); Neutrophils % (auto) 87.8 % (37.0-80.0); Platelet Count (auto) 288 10^3/uL (140-450); Red Blood Cells 4.43 10^6/uL (4.0-5.20); Red Cell Distribution Width 18.8 % (11.8-14.3); White Blood Cell 13.7 10^3/uL (4.4-10.8)
[2025-03-16] MEDS ORDERED: DEXTROSE (50%) 50ML SYRG IV PRN (09:30)
[2025-03-16 09:53] LABS: Base Excess -18.5 mmol/L (-2.0-3.0)
[2025-03-16] MEDS: MORPHINE SULFATE INJ 2 MG/ml SYRG IV ONE (10:01)
--- NOTE | 2025-03-16 10:02 | DVH ---
CT ABDOMEN AND PELVIS WITHOUT CONTRAST CLINICAL HISTORY: colitis TECHNIQUE: Multiple contiguous axial images of the abdomen and pelvis without intravenous contrast. T he images were reformatted degenerate coronal and sagittal reconstructions. All CT scans at this medical facility are performed using dose modulation techniques as appropriate t o a performed exam including the following:Automated exposure control was utilized; adjustment of the MA and/or KV according to patient size; and use of iterative reconstruction technique. Radiation Dose Information: CT Dose: CTDI volume is 14 mGy. Dose-length product is 733 mGy*cm Comparison: CT CT AB PEL WO CON-NO ORAL OR IV on DOS: 12/16/24, CT CT AB PEL WO CON-NO ORAL OR IV on D OS: 05/21/24 FINDINGS: Evaluation of the abdomen and pelvis is limited without intravenous contrast. The liver, gallbladder, pancreas, kidneys, adrenal glands, and spleen appear within normal limits. There is no gross evidence of abdominal lymphadenopathy. There is no free fluid or free air. The stomach grossly appears unremarkable. The small and large bowel loops demonstrate normal caliber and distribution. A normal appearing appendix is seen in the right lower quadrant abdomen. The abdominal aorta and IVC appear within normal limits. The bladder appears unremarkable for the degree of distention. Pelvic organ appears within normal cedeno its. There is no gross evidence of a pelvic mass. There is no free fluid collection. Visualized lung bases are clear. There is no acute osseous abnormality. IMPRESSION: 1. There is no acute process in the abdomen and pelvis. HS:Y
[2025-03-16] MEDS: INSULIN DRIP 100 UNIT/100ML 100 ML IV SCH (10:30)
[2025-03-16] MEDS ORDERED: MORPHINE SULFATE INJ 2 MG/ml SYRG IV PRN (10:45)
[2025-03-16] MEDS ORDERED: ACETAMINOPHEN 325 MG TAB PO PRN (10:45)
[2025-03-16] MEDS ORDERED: NITROGLYCERIN 0.4 MG SL TAB SL PRN (10:45)
[2025-03-16] MEDS ORDERED: HYDROcodone-ACET 5/325MG TAB PO PRN (10:45)
[2025-03-16] MEDS: InsuLIN REG 1unit/0.01ml Soln (100units/ml) IV ONE (10:52)
[2025-03-16] MEDS: INSULIN LANTUS (GLARGINE) 1 /0.01ml (100units/ml) SC ONE (10:53)
--- NOTE | 2025-03-16 10:57 | DVHHP2 ---
History of Present Illness Reason for Visit: Nausea, vomiting History of Present Illness Luisana Bassett is a 39-year-old female with past medical history of hypertension, diabetes, and gastroparesis, who came in due to abdominal pain, nausea, and vomiting. Patient states her symptoms began last . She states she arnoldo to [place] on , Saturday, and Saturday, and then on Saturday went to [facility] for her symptoms. Every visit she states they gave her fluids and sent her home. Patient was found to have elevated blood sugar and be in DKA in the ER. Cardiovascular: HTN GI: Other (gastroparesis) Endocrine: Diabetes Past Surgical History: (x 2), Other (Left breast infection requiring surgery, bilateral breast implants), Tubal Ligation Smoke: No ALCOHOL: none Drugs: Marijuana Lives: with Family Review of Systems Constitutional: No: Fever, Chills, Sweats, Weakness, Malaise, Other Eyes: No: Pain, Vision change, Conjunctivae inflammation, Eyelid inflammation, Other, Redness ENT: No: Ear pain, Ear discharge, Nose pain, Nose discharge, Nose congestion, Mouth pain, Mouth swelling, Throat pain, Throat swelling, Other Respiratory: No: Cough, Dry, Shortness of breath, SOB with excertion, Wheezing, Hemoptysis, Pleuritic Pain, Sputum, Wheezing, Other Cardiovascular: No: Chest Pain, Palpitations, Orthopnea, Paroxysmal Noc. Dyspnea, Edema, Lt Headedness, Other Gastrointestinal: Nausea, Vomiting, Abdominal Pain; No: Diarrhea, Constipation, Melena, Hematochezia, Other Genitourinary: No Dysuria, No Frequency, No Incontinence, No Hematuria, No Retention, No Other Musculoskeletal: No: other, neck pain, shoulder pain, arm pain, back pain, hand pain, leg pain, foot pain Skin: No: Rash, Lesions, Jaundice, Bruising, Other Neurological: No: Weakness, Numbness, Incoordination, Change in speech, Confusion, Seizures, Other Allergies: Coded Allergies: Hydrocodone (Verified Allergy, Unknown, 09/21/20) Lisinopril (Verified Allergy, Unknown, 05/28/24) Uncoded Allergies: DEMEROL (Allergy, Unknown, 08/27/18) Medications Current Medications Medications Dose Ordered Sig/Genoveva Route Start Time Stop Time Status Last Admin Dose Admin Insulin Human (Reg)/Sodium Chloride 100 ml @ 0.5 mls/hr Q24H IV 03/16/25 09:30 Diagnostic Test (Pha) 1 strip Q90MIN 03/16/25 10:30 Dextrose 50 ml PRN PRN IV 03/16/25 09:30 Insulin Glargine 15 units DAILY SC 03/17/25 10:00 Acetaminophen/ Hydrocodone Bitart 1 tab Q4HP PRN PO 03/16/25 10:45 UNV Ondansetron HCl 4 mg Q4HP PRN IV 03/16/25 10:45 UNV Docusate Sodium 100 mg BIDPRN PRN PO 03/16/25 10:45 UNV Acetaminophen 650 mg Q6HP PRN PO 03/16/25 10:45 UNV Morphine Sulfate 2 mg Q4HPRN PRN IV 03/16/25 10:45 UNV Nitroglycerin 0.4 mg Q5MINP PRN SL 03/16/25 10:45 UNV Morphine Sulfate 2 mg Q30M PRN IV 03/16/25 10:45 UNV Insulin Glargine 40 units DAILY SC 03/17/25 10:00 UNV Patient Own Medication 1 tab DAILY PO 03/17/25 10:00 UNV Exam Vital Signs Vital Signs Date Time Temp Pulse Resp B/P (MAP) Pulse Ox O2 Delivery O2 Flow Rate FiO2 03/16/25 10:01 103 17 158/64 03/16/25 08:03 100 Room Air* 0 21 03/16/25 05:09 98.3 98.3 General Appearance: Alert, Oriented X3, Cooperative, moderate distress HEENT: Atraumatic, PERRLA Respiratory: Clear to auscultation, Normal air movement Cardiovascular: Normal S1, Normal S2, No murmurs, Other (ST) Abdominal: Normal bowel sounds, Soft, No hepatospenomegaly, Other (abdominal pain, vomiting) Extremities: No clubbing, No cyanosis, No edema, Normal pulses, No t enderness/swelling Skin: No rashes, No breakdown, No significant lesion Neuro: Normal gait, Normal speech, Strength at 5/5 X4 ext, Normal tone Psych/Mental Status: Mental status NL, Mood NL Labs/Xrays Labs Test 03/16/25 09:47 03/16/25 08:30 03/16/25 07:35 03/16/25 07:03 Range/Units Blood Gas Specimen Type Arterial Blood Gas Sample Site Right radial Blood Gas Patient Temperature 37.0 Arterial Blood Date Drawn [id number] Arterial Blood pH 7.232 *L 7.350-7.450 Arterial Blood Partial Pressure CO2 16.9 *L 32.0-45.0 mmHg Arterial Blood Partial Pressure O2 124.9 H 83.0-108.0 mmHg Arterial Blood HCO3 7.0 L 21.0-28.0 mmol/L Arterial Blood Oxygen Saturation 98.3 H 94.0-98.0 % Arterial Blood Base Excess -18.5 L -2.0-3.0 mmol/L Arterial Blood Oxyhemoglobin 97.3 94.0-98.0 % Arterial Blood Carboxyhemoglobin 0.3 L 0.5-1.5 % Arterial Blood Methemoglobin 0.7 0.0-1.5 % Jose Rafael Test Yes Blood Gas Total Hemoglobin 10.60 L 12.0-16.0 g/dL Blood Gas Modality Room air FiO2 % 21.0 Blood Gas Critical Value Read Back yes Blood Gas Notified Whom pedro salazar md Blood Gas Notified Time [id number] Blood Gas Notified By dale mauricio Potassium Level 5.4 H 3.5-5.1 mmol/L Beta-Hydroxybutyric Acid > 4.500 H < 0.4 mmol/L POC Glucose 264 H 70-106 mg/dl White Blood Count 13.7 H 4.4-10.8 10^3/uL Red Blood Count 4.43 4.0-5.20 10^6/uL Hemoglobin 9.7 L 12.2-16.2 g/dL Hematocrit 33.3 L 36.0-46.0 % Mean Corpuscular Volume 75.3 L 80.0-100.0 fL Mean Corpuscular Hemoglobin 21.9 L 28.0-32.0 pg Mean Corpuscular Hemoglobin Concent 29.0 L 32.0-36.0 g/dL Red Cell Distribution Width 18.8 H 11.8-14.3 % Platelet Count 288 140-450 10^3/uL Mean Platelet Volume 9.9 6.9-10.8 fL Neutrophils (%) (Auto) 87.8 H 37.0-80.0 % Lymphocytes (%) (Auto) 4.9 L 10.0-50.0 % Monocytes (%) (Auto) 6.9 0.0-12.0 % Eosinophils (%) (Auto) 0.0 0.0-7.0 % Basophils (%) (Auto) 0.4 0.0-2.0 % Neutrophils # (Auto) 12.0 H 1.6-8.6 10 ^3/uL Lymphocytes # (Auto) 0.7 0.4-5.4 10 ^3/uL Monocytes # (Auto) 0.9 0-1.3 10 ^3/uL Eosinophils # (Auto) 0 0-0.8 10 ^3/uL Basophils # (Auto) 0.1 0-0.2 10 ^3/uL Nucleated Red Blood Cells 0.0 % Sodium Level 131 L 136-145 mmol/L Chloride Level 102 98-107 mmol/L Carbon Dioxide Level 11 L 20-31 mmol/L Anion Gap 18 H 5-15 Blood Urea Nitrogen 10 9-23 mg/dL Creatinine 1.11 H 0.550-1.02 mg/dL Glomerular Filtration Rate Calc 64 >90 mL/min BUN/Creatinine Ratio 9.0 L 10.0-20.0 Serum Glucose 296 H 74-106 mg/dL Calcium Level 9.4 8.7-10.4 mg/dL Test 03/16/25 04:59 Range/Units Urine Color Colorless Yellow Urine Clarity Clear Clear Urine pH 5.0 5.0-9.0 Urine Specific [place] 1.019 1.001-1.035 Urine Protein Negative Negative Urine Ketones 4+ H Negative Urine Blood 3+ H Negative /uL Urine Nitrite Negative Negative Urine Bilirubin Negative Negative Urine Urobilinogen Normal Negative mg/dL Urine Leukocyte Esterase Negative Negative /uL Urine RBC 14 0 - 4 /hpf Urine Microscopic WBC < 1 0-5 /HPF Urine Squamous Epithelial Cells Few <5 /hpf Urine Bacteria None seen None Seen /hpf Urine Glucose 4+ H Normal mg/dL CT ABDOMEN AND PELVIS WITHOUT CONTRAST FINDINGS: Evaluation of the abdomen and pelvis is limited without intravenous contrast. The liver, gallbladder, pancreas, kidneys, adrenal glands, and spleen appear within normal limits. There is no gross evidence of abdominal lymphadenopathy. There is no free fluid or free air. The stomach grossly appears unremarkable. The small and large bowel loops demonstrate normal caliber and distribution. A normal appearing appendix is seen in the right lower quadrant abdomen. The abdominal aorta and IVC appear within normal limits. The bladder appears unremarkable for the degree of distention. Pelvic organ appears within normal limits. There is no gross evidence of a pelvic mass. There is no free fluid collection. Visualized lung bases are clear. There is no acute osseous abnormality. IMPRESSION: 1. There is no acute process in the abdomen and pelvis. Assessment/Plan Assessment/Plan Assessment: Diabetic ketoacidosis, Metabolic acidosis, Hyperkalemia, Hypertension, Gastroparesis, Uncontrolled diabetes, Plan: Admit to [facility], IV insulin drip, IV hydration, Manage/Monitor electrolytes closely, BMP Q 6 hours x 3, Serum ketones in am, Home mediations reconciled, Plan discussed with: Patient My Orders Orders - BISHNU DON Procedure Category Date Status Time Admit ADMIT 03/16/25 Transmitted 10:37 Code Status CODE 03/16/25 Transmitted 10:37 Hydrocodone-Acet PHA 03/16/25 Logged 5/325mg Tab ([place] 10:45 Ondansetron Hcl PHA 03/16/25 Logged (Zofran) 10:45 Docusate Sodium PHA 03/16/25 Logged Capsule (Colace 10:45 Complete Blood Count LAB 03/17/25 Verified 04:00 Comprehensive LAB 03/17/25 Verified Metabolic Panel 04:00 Npo (Nothing By DIET 03/16/25 Transmitted Mouth) Diet Lunch Condition: Critical [facility] 03/16/25 In Process 10:37 Acetaminophen Tablet PHA 03/16/25 Logged (Tylenol Tablet) 10:45 Morphine Sulfate PHA 03/16/25 Logged Injection 10:45 Nitroglycerin PHA 03/16/25 Logged Sublingual (Ntrostat 10:45 Morphine Sulfate PHA 03/16/25 Logged Injection 10:45 Stat Ekg For Chest SABINE 03/16/25 In Process Pain 10:37 Notify Md Of Changes SABINE 03/16/25 In Process From Base 10:37 Etiology Teacher For SABINE 03/16/25 In Process 24 Hours 10:37 Emergency Dysrhythmia SABINE 03/16/25 In Process Protocol 10:37 Rhythm Strips Once SABINE 03/16/25 In Process Every Shift 10:37 Oxygen By Nasal RT 03/16/25 Transmitted Cannula 10:37 Drug Screen LAB 03/16/25 In Process 10:37 Insulin Lantus PHA 03/17/25 Logged (Glargine) (Lantus) 10:00 (Nf) Amlodipine PHA 03/17/25 Logged Besylate 10:00 Basic Metabolic Panel LAB 03/16/25 Logged 18:00 Basic Metabolic Panel LAB 03/17/25 Verified 00:00 Basic Metabolic Panel LAB 03/17/25 Verified 06:00 Beta-Hydroxybutyrate LAB 03/17/25 Verified 04:00 Date of Service: March 16, 2025 Billing Provider: BISHNU DON Common Visit Codes: [id number] INP/OBS CARE (MOD) BISHNU DON March 16, 2025 10:57
[2025-03-16] MEDS: ACCU-CHEK COMFORT CURVE STRIP VI SCH ×2 (10:59→21:11)
[2025-03-16] MEDS: CALCIUM GLUC 1,000mg/50ml-NS 50 ML IV ONE (11:00)
[2025-03-16 11:08] LABS: Barbiturate Scree,Urine Neg (NEGATIVE); Cannabinoid Screen, Urine Pos (NEGATIVE)
[2025-03-16 11:09] LABS: Amphetamine Screen, Urine Neg (NEGATIVE); Benzodiazephine Screen, Urine Neg (NEGATIVE); Cocaine Screen, Urine Neg (NEGATIVE); Opiate Scree,Urine Neg (NEGATIVE); Phencyclidine Screen, Urine Neg (NEGATIVE)
[2025-03-16] MEDS: D5W/SOD CHL 0.45%/KCL 20MEQ 1,000 ML IV SCH (16:30)
[2025-03-16] MEDS: ONDANSETRON HCL 4 MG/2 ML VIAL IV PRN (16:38)
[2025-03-16 16:50] LABS: Chloride 104 mmol/L (98-107); Potassium 4.3 mmol/L (3.5-5.1)
[2025-03-16 16:51] LABS: Anion Gap 13 (5-15); Calcium 9.7 mg/dL (8.7-10.4)
[2025-03-16 16:52] LABS: Carbon Dioxide 15 mmol/L (20-31); Sodium 132 mmol/L (136-145)
[2025-03-16 16:56] LABS: BUN/Creatinine Ratio 8.6 (10.0-20.0)
[2025-03-16 16:58] LABS: Blood Urea Nitrogen 7 mg/dL (9-23); Glucose 131 mg/dL (74-106)
[2025-03-16 18:24] LABS: Anion Gap 14 (5-15); Calcium 9.2 mg/dL (8.7-10.4); Chloride 104 mmol/L (98-107); Potassium 3.7 mmol/L (3.5-5.1)
[2025-03-16] MEDS: PANTOPRAZOLE 40 MG/10 ML VIAL INJ IV ONE ×2 (18:26→22:30)
[2025-03-16 18:30] LABS: BUN/Creatinine Ratio 7.3 (10.0-20.0)
[2025-03-16 18:38] LABS: Blood Urea Nitrogen 6 mg/dL (9-23); Carbon Dioxide 15 mmol/L (20-31); Glucose 107 mg/dL (74-106); Sodium 133 mmol/L (136-145)
[2025-03-16] MEDS: MORPHINE SULFATE INJ 2 MG/ml SYRG IV PRN (20:17)
[2025-03-16] MEDS: InsuLIN REG 1unit/0.01ml Soln (100units/ml) SC SCH (21:14)
[2025-03-16 21:35] VITALS: PULSE 106; RESP 18; O2SAT 96
[2025-03-17] VITALS (8 sets, daily range): BP systolic 147–167; BP diastolic 71–91; PULSE 62–117; RESP 18–20; TEMP 98.2–98.7; O2SAT 94–100
[2025-03-17 01:20] LABS: Chloride 101 mmol/L (98-107)
[2025-03-17 01:21] LABS: Anion Gap 17 (5-15); Calcium 9.4 mg/dL (8.7-10.4)
[2025-03-17 01:26] LABS: BUN/Creatinine Ratio 8.2 (10.0-20.0); Blood Urea Nitrogen 9 mg/dL (9-23)
[2025-03-17 01:32] LABS: Carbon Dioxide 13 mmol/L (20-31); Glucose 212 mg/dL (74-106); Sodium 131 mmol/L (136-145)
[2025-03-17] MEDS: DEXTROSE (50%) 50ML SYRG IV PRN (05:27)
[2025-03-17 06:26] LABS: Eosinophils # (auto) 0.2 10 ^3/uL (0-0.8); Hemoglobin 10.1 g/dL (12.2-16.2); Monocytes # (auto) 0.7 10 ^3/uL (0-1.3); Red Cell Distribution Width 19.1 % (11.8-14.3)
[2025-03-17 06:31] LABS: Basophils # (auto) 0.1 10 ^3/uL (0-0.2); Basophils % (auto) 0.5 % (0.0-2.0); Eosinophils % (auto) 1.5 % (0.0-7.0); Hematocrit 32.6 % (36.0-46.0); Lymphocytes # (auto) 1.1 10 ^3/uL (0.4-5.4); Lymphocytes % (auto) 10.1 % (10.0-50.0); Mean Corpuscular Hemoglobin 22.9 pg (28.0-32.0); Mean Corpuscular Volume 73.8 fL (80.0-100.0); Monocytes % (auto) 6.3 % (0.0-12.0); Neutrophils # (auto) 8.8 10 ^3/uL (1.6-8.6); Neutrophils % (auto) 81.6 % (37.0-80.0); Platelet Count (auto) 300 10^3/uL (140-450); Red Blood Cells 4.42 10^6/uL (4.0-5.20); White Blood Cell 10.7 10^3/uL (4.4-10.8)
[2025-03-17 06:49] LABS: Alanine Aminotransferase 17 U/L (7-40); Albumin 4.4 g/dL (3.2-4.8); Alkaline Phosphatase 84 U/L (46-116); Anion Gap 18 (5-15); BUN/Creatinine Ratio 9.3 (10.0-20.0); Blood Urea Nitrogen 9 mg/dL (9-23); Chloride 100 mmol/L (98-107); Potassium 3.9 mmol/L (3.5-5.1); Total Protein 6.5 g/dL (5.7-8.2)
[2025-03-17 06:50] LABS: Bilirubin, Total 0.7 mg/dL (0.2-1.0)
[2025-03-17 06:51] LABS: Aspartate Aminotransferase 13 U/L (13-40); Carbon Dioxide 14 mmol/L (20-31); Glucose 243 mg/dL (74-106); Sodium 132 mmol/L (136-145)
[2025-03-17] MEDS: PANTOPRAZOLE 40 MG/10 ML VIAL INJ IV ONE (07:46)
[2025-03-17] MEDS: amLODIPine BESYLATE 5 MG TAB PO SCH (08:45)
[2025-03-17] MEDS ORDERED: INSULIN LANTUS (GLARGINE) 1 /0.01ml (100units/ml) SC SCH ×2 (10:00)
[2025-03-17] MEDS: SOD CHL 0.9%/ KCL 20MEQ 1,000 ML IV SCH (11:52)
[2025-03-17] MEDS ORDERED: DEXTROSE (50%) 50ML SYRG IV PRN ×2 (13:45→22:30)
--- NOTE | 2025-03-17 13:49 | DVHPN2 ---
Subjective Patient continues to report having epigastric pain, nausea and vomiting, and inability to tolerate oral intake. Reviewed: Care Plan, H&P, Labs, Medications Changes from previous H/P or p: No Changes General: Per HPI Eyes: No Pain, No Vision change, No Conjunctivae inflammation, No Eyelid inflammation, No Other, No Redness ENT: No Ear pain, No Ear discharge, No Nose pain, No Nose discharge, No Nose congestion, No Mouth pain, No Mouth swelling, No Throat pain, No Throat swelling, No Other Cardiovascular: No Chest Pain, No Palpitations, No Orthopnea, No Paroxysmal Noc. Dyspnea, No Edema, No Lt Headedness, No Other Respiratory: No Cough, No Dry, No Shortness of breath, No SOB with excertion, No Wheezing, No Hemoptysis, No Pleuritic Pain, No Sputum, No Other Gastrointestinal: Nausea, Vomiting, Abdominal Pain; No Diarrhea, No Constipation, No Melena, No Hematochezia, No Other Genitourinary: No Dysuria, No Frequency, No Incontinence, No Hematuria, No Retention, No Other Musculoskeletal: No other, No neck pain, No shoulder pain, No arm pain, No back pain, No hand pain, No leg pain, No foot pain Skin: No Rash, No Lesions, No Jaundice, No Bruising, No Other Objective Vitals Vital Signs Date Time Temp Pulse Resp B/P (MAP) Pulse Ox O2 Delivery O2 Flow Rate FiO2 03/17/25 12:38 98.4 117 18 159/91 (113) 100 98.4 03/17/25 08:00 Room Air* 0 21 Intake/Output Intake and Output 03/17/25 07:00 Intake Total 2080 ml Balance 2080 ml Intake Oral 180 ml IV Total 1900 ml General Appearance: Alert, Oriented X3, Cooperative, moderate distress HEENT: Atraumatic, PERRLA Cardiovascular: Normal S1, Normal S2 Musculoskeletal: Normal sensory function, Normal motor function Neuro: Cranial nerves 3-12 NL Skin: Dry, Intact Psych/Mental Status: Mental status NL, Mood NL Medications Current Medications Medications Dose Ordered Sig/Genoveva Route Start Time Stop Time Status Last Admin Dose Admin Acetaminophen/ Hydrocodone Bitart 1 tab Q4HP PRN PO 03/16/25 10:45 Hold Ondansetron HCl 4 mg Q4HP PRN IV 03/16/25 10:45 03/17/25 11:45 4 MG Docusate Sodium 100 mg BIDPRN PRN PO 03/16/25 10:45 Acetaminophen 650 mg Q6HP PRN PO 03/16/25 10:45 Morphine Sulfate 2 mg Q4HPRN PRN IV 03/16/25 10:45 03/17/25 11:46 2 MG Nitroglycerin 0.4 mg Q5MINP PRN SL 03/16/25 10:45 Morphine Sulfate 2 mg Q30M PRN IV 03/16/25 10:45 Insulin Glargine 40 units DAILY SC 03/17/25 10:00 Hold Amlodipine Besylate 10 mg DAILY PO 03/17/25 10:00 03/17/25 08:45 10 MG Diagnostic Test (Pha) 1 strip IQ4HR 03/16/25 20:00 03/17/25 11:55 1 STRIP Insulin Human Regular IQ4HR SC 03/16/25 20:00 03/17/25 11:58 6 UNITS Dextrose 50 ml UD PRN IV 03/16/25 18:45 03/17/25 05:27 50 ML Pantoprazole Sodium 40 mg DAILY@0600 PO 03/18/25 06:00 Potassium Chloride/Sodium Chloride 1,000 ml @ 120 mls/hr Q8H20M IV 03/17/25 11:00 03/17/25 11:52 120 MLS/HR Metoclopramide HCl 10 mg Q8HR IV 03/17/25 14:00 03/18/25 06:01 Laboratory Results Laboratory Tests 03/17/25 05:36 Chemistry Test 03/16/25 16:27 03/16/25 17:47 03/17/25 00:33 03/17/25 05:36 Calcium Level 9.7 mg/dL (8.7-10.4) 9.2 mg/dL (8.7-10.4) 9.4 mg/dL (8.7-10.4) 9.0 mg/dL (8.7-10.4) Albumin 4.4 g/dL (3.2-4.8) Total Protein 6.5 g/dL (5.7-8.2) LFT Test 03/17/25 05:36 Alanine Aminotransferase (ALT) 17 U/L (7-40) Alkaline Phosphatase 84 U/L (46-116) Aspartate Amino Transferase (AST) 13 U/L (13-40) Total Bilirubin 0.7 mg/dL (0.2-1.0) HgA1c, TSH Test 03/17/25 05:36 Hemoglobin A1c 8.1 % A1C (<5.7) H Urinalysis Test 03/16/25 04:59 Urine Color Colorless (Yellow) Urine Clarity Clear (Clear) Urine pH 5.0 (5.0-9.0) Urine Specific [place] 1.019 (1.001-1.035) Urine Protein Negative (Negative) Urine Ketones 4+ (Negative) H Urine Blood 3+ /uL (Negative) H Urine Nitrite Negative (Negative) Urine Bilirubin Negative (Negative) Urine Urobilinogen Normal mg/dL (Negative) Urine Leukocyte Esterase Negative /uL (Negative) Urine RBC 14 /hpf (0 - 4) Urine Microscopic WBC < 1 /HPF (0-5) Urine Squamous Epithelial Cells Few /hpf (<5) Urine Bacteria None seen /hpf (None Seen) Urine Glucose 4+ mg/dL (Normal) H Microbiology Microbiology Date/Time Source Procedure Growth Status 03/17/25 01:43 Nose MRSA Screen - Final Complete Labs and/or images reviewed: Labs reviewed by me, Image(s) reviewed by me Assessment/Plan Assessment/Plan Impression: -diabetic ketoacidosis -hyperkalemia -probable diabetic gastroparesis -intractable nausea and vomiting -polysubstance abuse with noted fentanyl and cannabinoids in UDS. No notation of fentanyl provided in route to hospital or by emergency room physician -microcytic, hypochromic anemia Plan: -GI consultation -continue antiemetics, trial of Reglan -IV hydration -regular insulin sliding scale -PPI, Carafate -check iron panel -repeat labs in a.m. -given anion gap is beginning to increase, patient is unstable to transfer to [facility]. We will reassess tomorrow Total time spent with patient discussing and formulating plan of care: 35 minutes. This medical document was created using an electronic medical record system with [employer] dictation system. Although this document has been carefully reviewed, there may still be some phonetic and typographical errors. These areas are purely typographical due to imperfections of the software programs, and do not reflect any compromise in the patient's medical care. Plan discussed with: Patient, Other (RN) My Orders Orders - MARION PATE NP Procedure Category Date Status Time Sod Chl 0.9%/ Kcl PHA 03/17/25 In Process 20meq 11:00 * Youth Director CONS 03/17/25 Transmitted Consult Metoclopramide PHA 03/17/25 In Process Injection (Reglan 14:00 * Gi Dvh Commercial Manager CONS 03/17/25 Verified 13:33 Glucose Blood PHA 03/17/25 Verified (Accu-Chek Comfort 17:00 Mild Sliding Scale PHA 03/17/25 Verified 17:00 Dextrose 50% Syringe PHA 03/17/25 Verified 13:45 Date of Service: March 17, 2025 Billing Provider: MARION PATE NP Common Visit Codes: [id number] INP/OBS CARE(HIGH) MARION PATE NP March 17, 2025 13:49
[2025-03-17] MEDS: METOCLOPRAMIDE HCL 5MG/ml INJ 2ml VIAL IV SCH (14:31)
[2025-03-17] MEDS: InsuLIN REG 1unit/0.01ml Soln (100units/ml) SC SCH (16:49)
[2025-03-17] MEDS: ACCU-CHEK COMFORT CURVE STRIP VI SCH (16:49)
[2025-03-18] VITALS (9 sets, daily range): BP systolic 147–161; BP diastolic 72–98; PULSE 90–107; RESP 18–20; TEMP 97.9–98.8; O2SAT 99–100
[2025-03-18] MEDS: ACCU-CHEK COMFORT CURVE STRIP VI SCH (00:50)
[2025-03-18] MEDS: InsuLIN REG 1unit/0.01ml Soln (100units/ml) SC SCH (00:54)
[2025-03-18] MEDS: PANTOPRAZOLE 40 MG TAB PO SCH (05:15)
[2025-03-18 10:36] LABS: Alanine Aminotransferase 14 U/L (7-40); Albumin 4.5 g/dL (3.2-4.8); Alkaline Phosphatase 90 U/L (46-116); Anion Gap 17 (5-15); BUN/Creatinine Ratio 6.9 (10.0-20.0); Bilirubin, Total 0.7 mg/dL (0.2-1.0); Calcium 9.2 mg/dL (8.7-10.4); Potassium 3.7 mmol/L (3.5-5.1)
[2025-03-18 10:39] LABS: Aspartate Aminotransferase < 8 U/L (13-40); Blood Urea Nitrogen 6 mg/dL (9-23); Carbon Dioxide 18 mmol/L (20-31); Chloride 96 mmol/L (98-107); Glucose 308 mg/dL (74-106); Sodium 131 mmol/L (136-145)
--- NOTE | 2025-03-18 13:25 | DVHPN2 ---
Subjective Patient continues to report having epigastric pain, nausea and vomiting, and inability to tolerate oral intake. Reviewed: Care Plan, H&P, Labs, Medications Changes from previous H/P or p: No Changes General: Per HPI Eyes: No Pain, No Vision change, No Conjunctivae inflammation, No Eyelid inflammation, No Other, No Redness ENT: No Ear pain, No Ear discharge, No Nose pain, No Nose discharge, No Nose congestion, No Mouth pain, No Mouth swelling, No Throat pain, No Throat swelling, No Other Cardiovascular: No Chest Pain, No Palpitations, No Orthopnea, No Paroxysmal Noc. Dyspnea, No Edema, No Lt Headedness, No Other Respiratory: No Cough, No Dry, No Shortness of breath, No SOB with excertion, No Wheezing, No Hemoptysis, No Pleuritic Pain, No Sputum, No Other Gastrointestinal: Nausea, Vomiting, Abdominal Pain; No Diarrhea, No Constipation, No Melena, No Hematochezia, No Other Genitourinary: No Dysuria, No Frequency, No Incontinence, No Hematuria, No Retention, No Other Musculoskeletal: No other, No neck pain, No shoulder pain, No arm pain, No back pain, No hand pain, No leg pain, No foot pain Skin: No Rash, No Lesions, No Jaundice, No Bruising, No Other Objective Vitals Vital Signs Date Time Temp Pulse Resp B/P (MAP) Pulse Ox O2 Delivery O2 Flow Rate FiO2 03/18/25 10:46 105 18 148/78 03/18/25 09:00 97.9 99 97.9 03/18/25 08:00 Room Air* 0 21 Intake/Output Intake and Output 03/18/25 07:00 Intake Total 2120 ml Output Total 600 ml Balance 1520 ml Intake Oral 1400 ml IV Total 720 ml Output Urine Total 600 ml # Voids 2 General Appearance: Alert, Oriented X3, Cooperative, moderate distress HEENT: Atraumatic, PERRLA Cardiovascular: Normal S1, Normal S2 Musculoskeletal: Normal sensory function, Normal motor function Neuro: Cranial nerves 3-12 NL Skin: Dry, Intact Psych/Mental Status: Mental status NL, Mood NL Medications Current Medications Medications Dose Ordered Sig/Genoveva Route Start Time Stop Time Status Last Admin Dose Admin Acetaminophen/ Hydrocodone Bitart 1 tab Q4HP PRN PO 03/16/25 10:45 Hold Ondansetron HCl 4 mg Q4HP PRN IV 03/16/25 10:45 03/18/25 12:43 4 MG Docusate Sodium 100 mg BIDPRN PRN PO 03/16/25 10:45 Acetaminophen 650 mg Q6HP PRN PO 03/16/25 10:45 Morphine Sulfate 2 mg Q4HPRN PRN IV 03/16/25 10:45 03/18/25 10:16 2 MG Nitroglycerin 0.4 mg Q5MINP PRN SL 03/16/25 10:45 Morphine Sulfate 2 mg Q30M PRN IV 03/16/25 10:45 Amlodipine Besylate 10 mg DAILY PO 03/17/25 10:00 03/18/25 08:45 10 MG Pantoprazole Sodium 40 mg DAILY@0600 PO 03/18/25 06:00 03/18/25 05:15 40 MG Potassium Chloride/Sodium Chloride 1,000 ml @ 120 mls/hr Q8H20M IV 03/17/25 11:00 03/17/25 22:07 120 MLS/HR Insulin Human Regular ACHS SC 03/17/25 17:00 03/18/25 11:51 8 UNITS Dextrose 50 ml UD PRN IV 03/17/25 22:30 Laboratory Results Laboratory Tests 03/17/25 05:36 03/18/25 10:10 Chemistry Test 03/18/25 10:10 Albumin 4.5 g/dL (3.2-4.8) Calcium Level 9.2 mg/dL (8.7-10.4) Total Protein 7.0 g/dL (5.7-8.2) LFT Test 03/18/25 10:10 Alanine Aminotransferase (ALT) 14 U/L (7-40) Alkaline Phosphatase 90 U/L (46-116) Aspartate Amino Transferase (AST) < 8 U/L (13-40) L Total Bilirubin 0.7 mg/dL (0.2-1.0) Urinalysis Test 03/16/25 04:59 Urine Color Colorless (Yellow) Urine Clarity Clear (Clear) Urine pH 5.0 (5.0-9.0) Urine Specific [place] 1.019 (1.001-1.035) Urine Protein Negative (Negative) Urine Ketones 4+ (Negative) H Urine Blood 3+ /uL (Negative) H Urine Nitrite Negative (Negative) Urine Bilirubin Negative (Negative) Urine Urobilinogen Normal mg/dL (Negative) Urine Leukocyte Esterase Negative /uL (Negative) Urine RBC 14 /hpf (0 - 4) Urine Microscopic WBC < 1 /HPF (0-5) Urine Squamous Epithelial Cells Few /hpf (<5) Urine Bacteria None seen /hpf (None Seen) Urine Glucose 4+ mg/dL (Normal) H Microbiology Microbiology Date/Time Source Procedure Growth Status 03/17/25 01:43 Nose MRSA Screen - Final Complete Labs and/or images reviewed: Labs reviewed by me, Image(s) reviewed by me Assessment/Plan Assessment/Plan Impression: -diabetic ketoacidosis -hyperkalemia -probable diabetic gastroparesis -intractable nausea and vomiting -polysubstance abuse with noted fentanyl and cannabinoids in UDS. No notation of fentanyl provided in route to hospital or by emergency room physician -microcytic, hypochromic anemia Plan: Events: Patient's blood sugars have been labile, with sugars dropping in the 30s. Stop long-acting insulin continue regular insulin sliding scale. NPO after midnight. -GI consultation : Plans for EGD tomorrow. -continue antiemetics, trial of Reglan -IV hydration -regular insulin sliding scale -PPI, Carafate -repeat labs in a.m. Total time spent with patient discussing and formulating plan of care: 35 minutes. This medical document was created using an electronic medical record system with [employer] dictation system. Although this document has been carefully reviewed, there may still be some phonetic and typographical errors. These areas are purely typographical due to imperfections of the software programs, and do not reflect any compromise in the patient's medical care. Plan discussed with: Patient, Other (RN) My Orders Orders - MARION PATE NP Procedure Category Date Status Time Insulin R (Human) PHA 03/17/25 In Process (Insulin R) 17:00 * Gi Dvh Laceworker CONS 03/18/25 Transmitted 08:59 * Animal Cruelty Investigation Supervisor CONS 03/18/25 Transmitted Consult Date of Service: March 18, 2025 Billing Provider: MARION PATE NP Common Visit Codes: [id number] INP/OBS CARE(HIGH) MARION PATE NP March 18, 2025 13:25
--- NOTE | 2025-03-18 14:57 | DVH ---
CHEST RADIOGRAPH Indication: pre op Technique: Single frontal view of the chest was obtained Comparison: None FINDINGS: Lines and Tubes: None Lungs: No focal consolidation. Pleura: No effusion. No pneumothorax. Cardiomediastinal contours: Unremarkable Bones: No acute osseous abnormality. IMPRESSION: No acute cardiopulmonary disease.
--- NOTE | 2025-03-18 18:04 | DVHINCON2 ---
Date of service: March 18, [address] Martin Reason for Consultation Abdominal pain nausea vomiting History of Present Illness This 47-year-old female presented with complaints of diabetes with severe gastroparesis with some nausea vomiting anorexia unable to keep anything down. Apparently patient was in [facility] for three days and then went to [facility] for symptoms apparently she was scheduled for a EGD evaluation after two months but patient has persistent pain symptoms with nausea anorexia unable to keep any food down and hence came to the emergency room and from there admitted. No history of any hematemesis or melena has some weight loss but could not quantitate Past Medical History Diabetes Past Surgical History Family History: FH: skin cancer G8 FATHER FH: testicular cancer G8 FATHER Thyroid disease G8 MOTHER Family History Non contributory Social History Denies smoking or drinking occasional marijuana Allergies: Coded Allergies: Hydrocodone (Verified Allergy, Unknown, 09/21/20) Lisinopril (Verified Allergy, Unknown, 05/28/24) Meperidine (Verified Allergy, Unknown, 03/16/25) Home Meds Reported Medications Chlorhexidine Gluconate (Mouth (CHLORHEXIDINE ORAL RINSE) 473 Ml So, 15 ML MT Q12HR, ML 12/17/24 Insulin Lispro (Human) (Humalog) 100 Unit/Ml Inj, 100 UNIT SC, INJ 12/17/24 Insulin Glargine (Lantus) 100 Unit/Ml Inj, 40 UNITS SC DAILY 12/16/24 Amlodipine Besylate (Amlodipine Besylate) 10 Mg Tab, 1 TAB PO DAILY 12/16/24 Current Medications Current Medications Medications (Trade) Dose Ordered Sig/Genoveva Route PRN Reason Start Time Stop Time Status Last Admin Pantoprazole Sodium (Protonix Tablet) 40 mg DAILY@0600 PO 03/18/25 06:00 03/18/25 05:15 Diagnostic Test (Pha) (Accu-Chek Comfort Curve T) 1 strip IQ4HR 03/18/25 00:00 03/18/25 11:07 DC 03/18/25 08:00 Insulin Human Regular (InsuLIN R) IQ4HR SC 03/18/25 00:00 03/18/25 11:07 DC 03/18/25 08:40 Dextrose 50 ml UD PRN IV Blood Sugar LESS THAN 60 03/17/25 22:30 Review of Systems Noncontributory Vital Signs Vital Signs Date Time Temp Pulse Resp B/P (MAP) Pulse Ox O2 Delivery O2 Flow Rate FiO2 03/18/25 15:12 105 16 149/85 03/18/25 13:00 98.8 99 98.8 03/18/25 08:00 Room Air* 0 21 Physical Exam Moderately built and nourished female slightly thin built no acute distress Vitals stable HEENT examination no pallor no icterus Lungs clear Cardiovascular unremarkable Abdomen Soft mild tenderness in the epigastrium no rigidity no guarding no masses bowel sounds normal Extremities no edema Neuro grossly intact Labs/Diagnostic Data Labs Test 03/18/25 11:06 03/18/25 10:10 03/17/25 05:36 03/16/25 09:47 Range/Units POC Glucose 285 H 70-106 mg/dl Sodium Level 131 L 136-145 mmol/L Potassium Level 3.7 3.5-5.1 mmol/L Chloride Level 96 L 98-107 mmol/L Carbon Dioxide Level 18 L 20-31 mmol/L Anion Gap 17 H 5-15 Blood Urea Nitrogen 6 L 9-23 mg/dL Creatinine 0.87 0.550-1.02 mg/dL Glomerular Filtration Rate Calc 86 >90 mL/min BUN/Creatinine Ratio 6.9 L 10.0-20.0 Serum Glucose 308 H 74-106 mg/dL Calcium Level 9.2 8.7-10.4 mg/dL Total Bilirubin 0.7 0.2-1.0 mg/dL Aspartate Amino Transferase (AST) < 8 L 13-40 U/L Alanine Aminotransferase (ALT) 14 7-40 U/L Alkaline Phosphatase 90 46-116 U/L Total Protein 7.0 5.7-8.2 g/dL Albumin 4.5 3.2-4.8 g/dL Beta HCG, Quantitative 0.7 L 1.5-4.2 mIU/mL White Blood Count 10.7 4.4-10.8 10^3/uL Red Blood Count 4.42 4.0-5.20 10^6/uL Hemoglobin 10.1 L 12.2-16.2 g/dL Hematocrit 32.6 L 36.0-46.0 % Mean Corpuscular Volume 73.8 L 80.0-100.0 fL Mean Corpuscular Hemoglobin 22.9 L 28.0-32.0 pg Mean Corpuscular Hemoglobin Concent 31.0 L 32.0-36.0 g/dL Red Cell Distribution Width 19.1 H 11.8-14.3 % Platelet Count 300 140-450 10^3/uL Mean Platelet Volume 9.5 6.9-10.8 fL Neutrophils (%) (Auto) 81.6 H 37.0-80.0 % Lymphocytes (%) (Auto) 10.1 10.0-50.0 % Monocytes (%) (Auto) 6.3 0.0-12.0 % Eosinophils (%) (Auto) 1.5 0.0-7.0 % Basophils (%) (Auto) 0.5 0.0-2.0 % Neutrophils # (Auto) 8.8 H 1.6-8.6 10 ^3/uL Lymphocytes # (Auto) 1.1 0.4-5.4 10 ^3/uL Monocytes # (Auto) 0.7 0-1.3 10 ^3/uL Eosinophils # (Auto) 0.2 0-0.8 10 ^3/uL Basophils # (Auto) 0.1 0-0.2 10 ^3/uL Nucleated Red Blood Cells 0.0 % Hemoglobin A1c 8.1 H <5.7 % A1C Beta-Hydroxybutyric Acid > 4.500 H < 0.4 mmol/L Blood Gas Specimen Type Arterial Blood Gas Sample Site Right radial Blood Gas Patient Temperature 37.0 Arterial Blood Date Drawn [id number] Arterial Blood pH 7.232 *L 7.350-7.450 Arterial Blood Partial Pressure CO2 16.9 *L 32.0-45.0 mmHg Arterial Blood Partial Pressure O2 124.9 H 83.0-108.0 mmHg Arterial Blood HCO3 7.0 L 21.0-28.0 mmol/L Arterial Blood Oxygen Saturation 98.3 H 94.0-98.0 % Arterial Blood Base Excess -18.5 L -2.0-3.0 mmol/L Arterial Blood Oxyhemoglobin 97.3 94.0-98.0 % Arterial Blood Carboxyhemoglobin 0.3 L 0.5-1.5 % Arterial Blood Methemoglobin 0.7 0.0-1.5 % Jose Rafael Test Yes Blood Gas Total Hemoglobin 10.60 L 12.0-16.0 g/dL Blood Gas Modality Room air FiO2 % 21.0 Blood Gas Critical Value Read Back yes Blood Gas Notified Whom pedro salazar md Blood Gas Notified Time [id number] Blood Gas Notified By hang, dale Test 03/16/25 04:59 Range/Units Urine Color Colorless Yellow Urine Clarity Clear Clear Urine pH 5.0 5.0-9.0 Urine Specific [place] 1.019 1.001-1.035 Urine Protein Negative Negative Urine Ketones 4+ H Negative Urine Blood 3+ H Negative /uL Urine Nitrite Negative Negative Urine Bilirubin Negative Negative Urine Urobilinogen Normal Negative mg/dL Urine Leukocyte Esterase Negative Negative /uL Urine RBC 14 0 - 4 /hpf Urine Microscopic WBC < 1 0-5 /HPF Urine Squamous Epithelial Cells Few <5 /hpf Urine Bacteria None seen None Seen /hpf Urine Glucose 4+ H Normal mg/dL Urine Opiates Screen Neg NEGATIVE Urine Fentanyl Screen Pos NEGATIVE Urine Barbiturates Screen Neg NEGATIVE Urine Phencyclidine Screen Neg NEGATIVE Urine Amphetamines Screen Neg NEGATIVE Urine Benzodiazepines Screen Neg NEGATIVE Urine Cocaine Screen Neg NEGATIVE Urine Cannabinoids Screen Pos NEGATIVE Microbiology Date/Time Source Procedure Growth Status 03/17/25 01:43 Nose MRSA Screen - Final Complete Assessment 39-year-old with complaints of nausea vomiting persistent unable to keep anyth ing down history of diabetes and hypertension and gastroparesis in the past patient has not able to tolerate any meals has got some mild epigastric tenderness otherwise unremarkable labs showed that the hemoglobin is 10 clinical impression is diabetes possible diabetic gastroparesis possible ulcer disease candidiasis or other pathology also can not be excluded especially with the p ersistent nausea vomiting we will recommend EGD evaluation Plan/Recommendation will recommend EGD evaluation and further workup and treatment accordingly Thank you Dr. Butts Plan discussed with: Patient KAITLYNN BUTTS MD March 18, 2025 18:04
[2025-03-19] VITALS (9 sets, daily range): BP systolic 141–177; BP diastolic 78–99; PULSE 90–102; RESP 13–20; TEMP 97.8–98.7; O2SAT 94–100
[2025-03-19] MEDS: InsuLIN REG 1unit/0.01ml Soln (100units/ml) SC ONE (06:48)
[2025-03-19 07:50] LABS: INR 1.11 (0.9-1.15); Partial Thromboplastin Time 24.8 SEC (24.5-34.5); Prothrombin Time 11.6 sec (9.3-11.8)
[2025-03-19] MEDS: INSULIN LANTUS (GLARGINE) 1 /0.01ml (100units/ml) SC SCH ×2 (09:54→22:00)
[2025-03-19] MEDS ORDERED: fentaNYL CITRATE 100 MCG/2 ML VL ONE (12:41)
[2025-03-19] MEDS ORDERED: PROPOFOL 10 MG/ML 20 ML IV ONE (12:41)
--- NOTE | 2025-03-19 13:13 | DVHPN2 ---
Subjective Patient continues to report having epigastric pain, nausea and vomiting, and inability to tolerate oral intake. Reviewed: Care Plan, H&P, Labs, Medications Changes from previous H/P or p: No Changes General: Per HPI Eyes: No Pain, No Vision change, No Conjunctivae inflammation, No Eyelid inflammation, No Other, No Redness ENT: No Ear pain, No Ear discharge, No Nose pain, No Nose discharge, No Nose congestion, No Mouth pain, No Mouth swelling, No Throat pain, No Throat swelling, No Other Cardiovascular: No Chest Pain, No Palpitations, No Orthopnea, No Paroxysmal Noc. Dyspnea, No Edema, No Lt Headedness, No Other Respiratory: No Cough, No Dry, No Shortness of breath, No SOB with excertion, No Wheezing, No Hemoptysis, No Pleuritic Pain, No Sputum, No Other Gastrointestinal: Nausea, Vomiting, Abdominal Pain; No Diarrhea, No Constipation, No Melena, No Hematochezia, No Other Genitourinary: No Dysuria, No Frequency, No Incontinence, No Hematuria, No Retention, No Other Musculoskeletal: No other, No neck pain, No shoulder pain, No arm pain, No back pain, No hand pain, No leg pain, No foot pain Skin: No Rash, No Lesions, No Jaundice, No Bruising, No Other Objective Vitals Vital Signs Date Time Temp Pulse Resp B/P (MAP) Pulse Ox O2 Delivery O2 Flow Rate FiO2 03/19/25 09:49 99 16 141/82 03/19/25 08:45 97.9 100 97.9 03/19/25 08:00 Room Air* 0 21 Intake/Output Intake and Output 03/19/25 07:00 Intake Total 3070 ml Balance 3070 ml Intake Oral 2350 ml IV Total 720 ml # Voids 4 General Appearance: Alert, Oriented X3, Cooperative, moderate distress HEENT: Atraumatic, PERRLA Cardiovascular: Normal S1, Normal S2 Musculoskeletal: Normal sensory function, Normal motor function Neuro: Cranial nerves 3-12 NL Skin: Dry, Intact Psych/Mental Status: Mental status NL, Mood NL Medications Current Medications Medications Dose Ordered Sig/Genoveva Route Start Time Stop Time Status Last Admin Dose Admin Acetaminophen/ Hydrocodone Bitart 1 tab Q4HP PRN PO 03/16/25 10:45 Hold Ondansetron HCl 4 mg Q4HP PRN IV 03/16/25 10:45 03/19/25 08:38 4 MG Docusate Sodium 100 mg BIDPRN PRN PO 03/16/25 10:45 Acetaminophen 650 mg Q6HP PRN PO 03/16/25 10:45 Morphine Sulfate 2 mg Q4HPRN PRN IV 03/16/25 10:45 03/19/25 09:49 2 MG Nitroglycerin 0.4 mg Q5MINP PRN SL 03/16/25 10:45 Morphine Sulfate 2 mg Q30M PRN IV 03/16/25 10:45 Amlodipine Besylate 10 mg DAILY PO 03/17/25 10:00 03/19/25 09:44 10 MG Pantoprazole Sodium 40 mg DAILY@0600 PO 03/18/25 06:00 03/19/25 06:11 40 MG Potassium Chloride/Sodium Chloride 1,000 ml @ 120 mls/hr Q8H20M IV 03/17/25 11:00 03/19/25 05:45 120 MLS/HR Insulin Human Regular ACHS SC 03/17/25 17:00 03/19/25 06:07 10 UNITS Dextrose 50 ml UD PRN IV 03/17/25 22:30 Insulin Glargine 10 units BID@1000,2200 SC 03/19/25 10:00 03/19/25 09:54 10 UNITS Laboratory Results Laboratory Tests 03/17/25 05:36 03/18/25 10:10 Coagulation Test 03/19/25 06:38 Prothrombin Time 11.6 sec (9.3-11.8) Prothrombin Time INR 1.11 (0.9-1.15) Activated Partial Thromboplast Time 24.8 SEC (24.5-34.5) Urinalysis Test 03/16/25 04:59 Urine Color Colorless (Yellow) Urine Clarity Clear (Clear) Urine pH 5.0 (5.0-9.0) Urine Specific [place] 1.019 (1.001-1.035) Urine Protein Negative (Negative) Urine Ketones 4+ (Negative) H Urine Blood 3+ /uL (Negative) H Urine Nitrite Negative (Negative) Urine Bilirubin Negative (Negative) Urine Urobilinogen Normal mg/dL (Negative) Urine Leukocyte Esterase Negative /uL (Negative) Urine RBC 14 /hpf (0 - 4) Urine Microscopic WBC < 1 /HPF (0-5) Urine Squamous Epithelial Cells Few /hpf (<5) Urine Bacteria None seen /hpf (None Seen) Urine Glucose 4+ mg/dL (Normal) H Microbiology Microbiology Date/Time Source Procedure Growth Status 03/17/25 01:43 Nose MRSA Screen - Final Complete Labs and/or images reviewed: Labs reviewed by me, Image(s) reviewed by me Assessment/Plan Assessment/Plan Impression: -diabetic ketoacidosis -hyperkalemia -probable diabetic gastroparesis -intractable nausea and vomiting -polysubstance abuse with noted fentanyl and cannabinoids in UDS. No notation of fentanyl provided in route to hospital or by emergency room physician -microcytic, hypochromic anemia Plan: Events: Patient's blood sugar known to be uncontrolled. Patient is currently NPO and having plans for EGD today. We will restart long-acting insulin this evening. -GI consultation: Plans for EGD today. Recommendations thereafter appreciated. -continue antiemetics, trial of Reglan -IV hydration -regular insulin sliding scale -PPI, Carafate -repeat labs in a.m. Total time spent with patient discussing and formulating plan of care: 35 minutes. This medical document was created using an electronic medical record system with [employer] dictation system. Although this document has been carefully reviewed, there may still be some phonetic and typographical errors. These areas are purely typographical due to imperfections of the software programs, and do not reflect any compromise in the patient's medical care. Plan discussed with: Patient, Other (RN) My Orders Orders - MARION PATE NP Procedure Category Date Status Time Chest Xray 1 View XY 03/18/25 Resulted 13:23 Date of Service: March 19, 2025 Billing Provider: MARION PATE NP Common Visit Codes: [id number] INP/OBS CARE(HIGH) MARION PATE NP March 19, 2025 13:13
--- NOTE | 2025-03-19 13:40 | DVHOP2 ---
Operative Report DATE OF PROCEDURE: 03/19/25 INDICATIONS FOR THE PROCEDURE: ABDOMINAL PAIN PERSISTENT NAUSEA VOMITING HISTORY OF TYPE 1 DIABETES PROCEDURE PERFORMED: 1. Esophagogastroduodenoscopy and biopsy with cold biopsy POSTOPERATIVE DIAGNOSIS: Small hiatal hernia Esophagitis LA classification C Antral gastritis INFORMED CONSENT: The risks and benefits and alternatives were explained to the patient and informed consent was obtained. PROCEDURE IN DETAIL: The patient was kept NPO after midnight. In the endoscopy room in [place] , MACwas given to get her sedated. Olympus gastroscope was passed through the oropharynx into the stomach and the duodenum, and the findings were as follows. Esophagus: 1 cm hiatal hernia Moderate esophagitis LA classification C Esophagitis biopsies taken with cold biopsy forceps No Esophageal ulcer No Esophageal stricture No esophageal varices No evidence of candidiasis Stomach: Fundus: Normal except for some minimal gastric stasis from possible gastroparesis Body and antrum Erythematous streaks suggestive of gastritis biopsies cold biopsy for taken to ensure there was no H pylori or other pathology No bleeding seen Pylorus normal Duodenum Mild nonspecific duodenitis, biopsies taken with cold biopsy forceps to ensure there is no celiac disease or other pathology Endoscopic impression Small hiatal hernia Esophagitis LA classification C Antral gastritis Suggestions Await the biopsy result Aggressive treatment with PPIs Strict control of diabetes Case symptoms persist may need referral to a referral center for manometric studies and other gastric emptying studies and other workup Thank you for asking me to take part in the care of this pleasant patient KAITLYNN Huerta MD March 19, 2025 13:40
[2025-03-20] VITALS (8 sets, daily range): BP systolic 130–174; BP diastolic 69–94; PULSE 85–107; RESP 16–20; TEMP 98.1–99.7; O2SAT 97–100
[2025-03-20] MEDS: KETOROLAC TROMETH 30 MG/ML 1ML VIAL IV ONE (08:16)
--- NOTE | 2025-03-20 14:57 | DVHPN2 ---
Subjective Had abdominal pain this morning Reviewed: Care Plan, H&P, Labs, Medications, Previous Orders, Radiology Changes from previous H/P or p: No Changes General: Per HPI Objective Vitals Vital Signs Date Time Temp Pulse Resp B/P (MAP) Pulse Ox O2 Delivery O2 Flow Rate FiO2 03/20/25 13:11 99.7 94 17 130/69 (89) 99 99.7 03/20/25 08:00 Room Air* 0 21 Intake/Output Intake and Output 03/20/25 07:00 Intake Total 2250 ml Balance 2250 ml Intake Oral 1025 ml IV Total 1225 ml # Voids 4 General Appearance: Alert, Oriented X3, Cooperative HEENT: Atraumatic Cardiovascular: Regular rate Abdomen: Other (SOME TENDERNESS IN THE MIDEPIGASTRIC AREA) Psych/Mental Status: Mental status NL Medications Current Medications Medications Dose Ordered Sig/Genoveva Route Start Time Stop Time Status Last Admin Dose Admin Acetaminophen/ Hydrocodone Bitart 1 tab Q4HP PRN PO 03/16/25 10:45 Hold Ondansetron HCl 4 mg Q4HP PRN IV 03/16/25 10:45 03/20/25 11:27 4 MG Docusate Sodium 100 mg BIDPRN PRN PO 03/16/25 10:45 Acetaminophen 650 mg Q6HP PRN PO 03/16/25 10:45 Morphine Sulfate 2 mg Q4HPRN PRN IV 03/16/25 10:45 03/20/25 11:28 2 MG Nitroglycerin 0.4 mg Q5MINP PRN SL 03/16/25 10:45 Morphine Sulfate 2 mg Q30M PRN IV 03/16/25 10:45 Amlodipine Besylate 10 mg DAILY PO 03/17/25 10:00 03/20/25 09:47 10 MG Pantoprazole Sodium 40 mg DAILY@0600 PO 03/18/25 06:00 03/20/25 05:51 40 MG Potassium Chloride/Sodium Chloride 1,000 ml @ 120 mls/hr Q8H20M IV 03/17/25 11:00 03/20/25 05:51 120 MLS/HR Insulin Human Regular ACHS SC 03/17/25 17:00 03/20/25 11:33 3 UNITS Dextrose 50 ml UD PRN IV 03/17/25 22:30 Insulin Glargine 10 units HS SC 03/19/25 22:00 Laboratory Results Laboratory Tests 03/17/25 05:36 03/18/25 10:10 Urinalysis Test 03/16/25 04:59 Urine Color Colorless (Yellow) Urine Clarity Clear (Clear) Urine pH 5.0 (5.0-9.0) Urine Specific [place] 1.019 (1.001-1.035) Urine Protein Negative (Negative) Urine Ketones 4+ (Negative) H Urine Blood 3+ /uL (Negative) H Urine Nitrite Negative (Negative) Urine Bilirubin Negative (Negative) Urine Urobilinogen Normal mg/dL (Negative) Urine Leukocyte Esterase Negative /uL (Negative) Urine RBC 14 /hpf (0 - 4) Urine Microscopic WBC < 1 /HPF (0-5) Urine Squamous Epithelial Cells Few /hpf (<5) Urine Bacteria None seen /hpf (None Seen) Urine Glucose 4+ mg/dL (Normal) H Microbiology Microbiology Date/Time Source Procedure Growth Status 03/17/25 01:43 Nose MRSA Screen - Final Complete Assessment/Plan Assessment/Plan Status post DKA Abdominal pain/gastritis /possible gastroparesis Esophagitis Hiatal hernia Fentanyl positive Cannabinoid use Anemia of chronic disease Diabetes type 1 started as gestational at the age of 17 Mild temperature today afternoon Plan: Continue current plan of care. Add Carafate. Check urine analysis again and culture. Further plan per orders Plan discussed with: Patient My Orders Orders - FRANCIS PINEDA MD Procedure Category Date Status Time Urinalysis LAB 03/20/25 Logged 14:51 Urine Bacterial ANDREA 03/20/25 Logged Culture 14:51 Date of Service: March 20, 2025 Billing Provider: FRANCIS PINEDA MD Common Visit Codes: [id number] INP/OBS CARE(HIGH) FRANCIS PINEDA MD March 20, 2025 14:57
[2025-03-20] MEDS ORDERED: hydrALAZINE HCL 20 MG/ML VL IV PRN (15:30)
[2025-03-20] MEDS: SUCRALFATE 1 GM/10 ML ORAL SUSP PO SCH (16:51)
[2025-03-20] MEDS: ACCU-CHEK COMFORT CURVE STRIP VI SCH (16:51)
[2025-03-20 17:09] LABS: Urine Bacteria FEW /hpf (None Seen); Urine Blood 1+ /uL (Negative); Urine Clarity Clear (Clear); Urine Color Light-Yellow (Yellow); Urine Mucus FEW (None Seen); Urine Protein, UAD Negative (Negative); Urine Specific Gravity 1.015 (1.001-1.035); Urine Squamous Epithelial Cell FEW /hpf (<5); Urine Urobilinogen Normal (Negative); Urine WBC 9 /HPF (0-5)
--- NOTE | 2025-03-20 20:25 | DVHPN2 ---
Progress Note - Dictate Date Seen: March 20, 2025 Has the PT tested + for MRSA If YES, has PT been informed?: No Medical Necessity Reason Pt with a Central, PICC or Fol: No Subjective Patient is feeling much better able to tolerate feeds no nausea no vomiting no abdominal pains vital signs Vital Sign Date Time Temp Pulse Resp B/P (MAP) Pulse Ox O2 Delivery O2 Flow Rate FiO2 03/20/25 19:27 100 16 131/83 03/20/25 17:40 98.6 99 98.6 03/20/25 08:00 Room Air* 0 21 Total Intake and Output 03/19/25 03/19/25 03/20/25 15:00 23:00 07:00 Intake Total 25 ml 1725 ml 500 ml Balance 25 ml 1725 ml 500 ml medications Current Medications Medications Dose Ordered Sig/Genoveva Route Start Time Stop Time Status Last Admin Dose Admin Acetaminophen/ Hydrocodone Bitart 1 tab Q4HP PRN PO 03/16/25 10:45 Hold Ondansetron HCl 4 mg Q4HP PRN IV 03/16/25 10:45 03/20/25 18:20 4 MG Docusate Sodium 100 mg BIDPRN PRN PO 03/16/25 10:45 Acetaminophen 650 mg Q6HP PRN PO 03/16/25 10:45 Morphine Sulfate 2 mg Q4HPRN PRN IV 03/16/25 10:45 03/20/25 19:27 2 MG Nitroglycerin 0.4 mg Q5MINP PRN SL 03/16/25 10:45 Morphine Sulfate 2 mg Q30M PRN IV 03/16/25 10:45 Amlodipine Besylate 10 mg DAILY PO 03/17/25 10:00 03/20/25 09:47 10 MG Pantoprazole Sodium 40 mg DAILY@0600 PO 03/18/25 06:00 03/20/25 05:51 40 MG Potassium Chloride/Sodium Chloride 1,000 ml @ 120 mls/hr Q8H20M IV 03/17/25 11:00 03/20/25 15:39 120 MLS/HR Insulin Human Regular ACHS SC 03/17/25 17:00 03/20/25 16:55 4 UNITS Dextrose 50 ml UD PRN IV 03/17/25 22:30 Insulin Glargine 10 units HS SC 03/19/25 22:00 Sucralfate 1 gm QID@0600,1130,1700,2200 PO 03/20/25 17:00 03/20/25 16:51 1 GM Hydralazine HCl 10 mg Q4HP PRN IV 03/20/25 15:30 Diagnostic Test (Pha) 1 strip ACHS 03/20/25 17:00 03/20/25 16:51 1 STRIP objective Abdomen is soft nontender no masses laboratory and microbiology Laboratory Tests 03/18/25 10:10 03/17/25 05:36 Test 03/18/25 10:10 Range/Units Serum Glucose 308 H 74-106 mg/dL Assessment/Plan 39-year-old with complaints of nausea vomiting persistent unable to keep anything down history of diabetes and hypertension and gastroparesis in the past patient has not able to tolerate any meals has got some mild epigastric tenderness otherwise unremarkable labs showed that the hemoglobin is 10 clinical impression is diabetes possible diabetic gastroparesis possible ulcer disease candidiasis or other pathology also can not be excluded especially with the per EGD showed is esophagitis and gastritis no candidiasis or any severe gastroparesis Plans Treat with PPIs and if necessary Carafate and small frequent meals and aggressive anti-reflux regimen If symptoms persist or worsen may need further evaluation as necessary Thank you Dr. Butts Dietary Evaluation Review Comments: Refer To cde on DC Continue current POC Expected Outcomes/Goals: GI symptoms resolve Blood glucose WNL FU 3-5 days Plan discussed with: Patient KAITLYNN BUTTS MD March 20, 2025 20:25
[2025-03-20] MEDS: MELATONIN 5 MG TAB PO SCH (21:08)
[2025-03-21] VITALS (8 sets, daily range): BP systolic 131–156; BP diastolic 58–86; PULSE 82–105; RESP 16–20; TEMP 97.6–98.5; O2SAT 98–100
[2025-03-21] MEDS: Glucerna Carbsteady SHAKE Vanilla 8oz PO SCH (12:00)
[2025-03-21] MEDS ORDERED: ENSURE CLEAR Mixed Berry 8oz Carton PO SCH (13:00)
--- NOTE | 2025-03-21 16:21 | DVHPN2 ---
Subjective SOME NAUSEA AND VOMIT AFTER THE P.O. INTAKE Reviewed: Care Plan, H&P, Labs, Medications, Previous Orders, Radiology Changes from previous H/P or p: No Changes General: Per HPI Objective Vitals Vital Signs Date Time Temp Pulse Resp B/P (MAP) Pulse Ox O2 Delivery O2 Flow Rate FiO2 03/21/25 13:24 98.5 84 16 131/77 (95) 100 98.5 03/21/25 08:00 Room Air* 0 21 Intake/Output Intake and Output 03/21/25 07:00 Intake Total 950 ml Balance 950 ml Intake Oral 950 ml # Voids 9 General Appearance: Alert, Oriented X3, Cooperative HEENT: Atraumatic Cardiovascular: Regular rate Abdomen: Other (SOME TENDERNESS IN THE MID EPIGASTRIC AREA) Psych/Mental Status: Mental status NL Medications Current Medications Medications Dose Ordered Sig/Genoveva Route Start Time Stop Time Status Last Admin Dose Admin Acetaminophen/ Hydrocodone Bitart 1 tab Q4HP PRN PO 03/16/25 10:45 Hold Ondansetron HCl 4 mg Q4HP PRN IV 03/16/25 10:45 03/21/25 11:07 4 MG Docusate Sodium 100 mg BIDPRN PRN PO 03/16/25 10:45 Acetaminophen 650 mg Q6HP PRN PO 03/16/25 10:45 Morphine Sulfate 2 mg Q4HPRN PRN IV 03/16/25 10:45 03/21/25 11:09 2 MG Nitroglycerin 0.4 mg Q5MINP PRN SL 03/16/25 10:45 Morphine Sulfate 2 mg Q30M PRN IV 03/16/25 10:45 Amlodipine Besylate 10 mg DAILY PO 03/17/25 10:00 03/21/25 10:28 10 MG Pantoprazole Sodium 40 mg DAILY@0600 PO 03/18/25 06:00 03/21/25 06:20 40 MG Potassium Chloride/Sodium Chloride 1,000 ml @ 120 mls/hr Q8H20M IV 03/17/25 11:00 03/20/25 15:39 120 MLS/HR Insulin Human Regular ACHS SC 03/17/25 17:00 03/21/25 11:46 8 UNITS Dextrose 50 ml UD PRN IV 03/17/25 22:30 Insulin Glargine 10 units HS SC 03/19/25 22:00 5/17/25 21:25 10 UNITS Sucralfate 1 gm QID@0600,1130,1700,2200 PO 03/20/25 17:00 03/21/25 10:28 1 GM Hydralazine HCl 10 mg Q4HP PRN IV 03/20/25 15:30 Diagnostic Test (Pha) 1 strip ACHS 03/20/25 17:00 03/21/25 11:46 1 STRIP Melatonin 5 mg HS PO 03/20/25 22:00 03/20/25 21:08 5 MG Enteral Nutritional Formula 240 ml TIDWM PO 03/21/25 13:00 UNV Enteral Nutritional Formula 240 ml TIDWM PO 03/21/25 12:00 Laboratory Results Laboratory Tests 03/17/25 05:36 03/18/25 10:10 Urinalysis Test 03/20/25 14:51 Urine Color Light-yellow (Yellow) Urine Clarity Clear (Clear) Urine pH 6.0 (5.0-9.0) Urine Specific [place] 1.015 (1.001-1.035) Urine Protein Negative (Negative) Urine Ketones 4+ (Negative) H Urine Blood 1+ /uL (Negative) H Urine Nitrite Negative (Negative) Urine Bilirubin Negative (Negative) Urine Urobilinogen Normal mg/dL (Negative) Urine Leukocyte Esterase 2+ /uL (Negative) Urine RBC 2 /hpf (0 - 4) Urine Microscopic WBC 9 /HPF (0-5) H Urine Squamous Epithelial Cells Few /hpf (<5) Urine Bacteria Few /hpf (None Seen) H Urine Mucus Few (None Seen) Urine Glucose 4+ mg/dL (Normal) H Microbiology Microbiology Date/Time Source Procedure Growth Status 03/20/25 14:51 Voided Urine Urine Culture - Preliminary Resulted 03/17/25 01:43 Nose MRSA Screen - Final Complete Assessment/Plan Assessment/Plan Status post DKA Abdominal pain/gastritis /possible gastroparesis Esophagitis Hiatal hernia Fentanyl positive Cannabinoid use Anemia of chronic disease Diabetes type 1 started as gestational at the age of 17 Mild temperature today afternoon Plan: PPIS AND CARAFATE. DIABETIC DIET. ONCE TOLERATED THE SHE WILL BE DISCHARGED HOME. REGLAN 5 MG BEFORE MEALS AND AT BEDTIME TO HELP WITH THE NAUSEA AND VOMIT AND P.O. INTAKE. Plan discussed with: Patient My Orders Orders - FRANCIS PINEDA MD Procedure Category Date Status Time Glucose Blood PHA 03/20/25 In Process (Accu-Chek Comfort 17:00 * Dietary Consult CONS 03/21/25 Transmitted 09:42 Consistent DIET 03/21/25 Transmitted Carb([facility])Diabetes Dinner Date of Service: March 21, 2025 Billing Provider: FRANCIS PINEDA MD Common Visit Codes: [id number] INP/OBS CARE(HIGH) FRANCIS PINEDA MD March 21, 2025 16:20
[2025-03-21] MEDS: METOCLOPRAMIDE HCL 10 MG TAB PO SCH (17:28)
[2025-03-21] MEDS: DOCUSATE SOD 100 MG CAP PO PRN (21:29)
[2025-03-22 01:00] VITALS: BP 154/85; PULSE 83; RESP 18; TEMP 97.8; O2SAT 100
[2025-03-22 05:00] VITALS: BP 158/76; PULSE 89; RESP 20; TEMP 98.2; O2SAT 97
[2025-03-22 08:00] VITALS: PULSE 79
[2025-03-22 09:13] VITALS: BP 148/85; PULSE 79; RESP 17; TEMP 98.2; O2SAT 99
--- NOTE | 2025-03-22 09:35 | DVHDS2 ---
Discharge Summary Date of Admission March 16, 2025 at 10:37 Date of Discharge: March 22, 2025 Admitting Diagnosis Diabetic ketoacidosis Labs/Diagnostic Data: Laboratory Results Test 03/22/25 06:09 03/20/25 14:51 03/19/25 06:38 03/18/25 10:10 POC Glucose 199 mg/dl (70-106) Urine Color Light-yellow (Yellow) Urine Clarity Clear (Clear) Urine pH 6.0 (5.0-9.0) Urine Specific [place] 1.015 (1.001-1.035) Urine Protein Negative (Negative) Urine Ketones 4+ (Negative) Urine Blood 1+ /uL (Negative) Urine Nitrite Negative (Negative) Urine Bilirubin Negative (Negative) Urine Urobilinogen Normal mg/dL (Negative) Urine Leukocyte Esterase 2+ /uL (Negative) Urine RBC 2 /hpf (0 - 4) Urine Microscopic WBC 9 /HPF (0-5) Urine Squamous Epithelial Cells Few /hpf (<5) Urine Bacteria Few /hpf (None Seen) Urine Mucus Few (None Seen) Urine Glucose 4+ mg/dL (Normal) Prothrombin Time 11.6 sec (9.3-11.8) Prothrombin Time INR 1.11 (0.9-1.15) Activated Partial Thromboplast Time 24.8 SEC (24.5-34.5) Sodium Level 131 mmol/L (136-145) Potassium Level 3.7 mmol/L (3.5-5.1) Chloride Level 96 mmol/L (98-107) Carbon Dioxide Level 18 mmol/L (20-31) Anion Gap 17 (5-15) Blood Urea Nitrogen 6 mg/dL (9-23) Creatinine 0.87 mg/dL (0.550-1.02) Glomerular Filtration Rate Calc 86 mL/min (>90) BUN/Creatinine Ratio 6.9 (10.0-20.0) Serum Glucose 308 mg/dL (74-106) Calcium Level 9.2 mg/dL (8.7-10.4) Total Bilirubin 0.7 mg/dL (0.2-1.0) Aspartate Amino Transferase (AST) < 8 U/L (13-40) Alanine Aminotransferase (ALT) 14 U/L (7-40) Alkaline Phosphatase 90 U/L (46-116) Total Protein 7.0 g/dL (5.7-8.2) Albumin 4.5 g/dL (3.2-4.8) Beta HCG, Quantitative 0.7 mIU/mL (1.5-4.2) Test 03/17/25 05:36 03/16/25 09:47 03/16/25 04:59 White Blood Count 10.7 10^3/uL (4.4-10.8) Red Blood Count 4.42 10^6/uL (4.0-5.20) Hemoglobin 10.1 g/dL (12.2-16.2) Hematocrit 32.6 % (36.0-46.0) Mean Corpuscular Volume 73.8 fL (80.0-100.0) Mean Corpuscular Hemoglobin 22.9 pg (28.0-32.0) Mean Corpuscular Hemoglobin Concent 31.0 g/dL (32.0-36.0) Red Cell Distribution Width 19.1 % (11.8-14.3) Platelet Count 300 10^3/uL (140-450) Mean Platelet Volume 9.5 fL (6.9-10.8) Neutrophils (%) (Auto) 81.6 % (37.0-80.0) Lymphocytes (%) (Auto) 10.1 % (10.0-50.0) Monocytes (%) (Auto) 6.3 % (0.0-12.0) Eosinophils (%) (Auto) 1.5 % (0.0-7.0) Basophils (%) (Auto) 0.5 % (0.0-2.0) Neutrophils # (Auto) 8.8 10 ^3/uL (1.6-8.6) Lymphocytes # (Auto) 1.1 10 ^3/uL (0.4-5.4) Monocytes # (Auto) 0.7 10 ^3/uL (0-1.3) Eosinophils # (Auto) 0.2 10 ^3/uL (0-0.8) Basophils # (Auto) 0.1 10 ^3/uL (0-0.2) Nucleated Red Blood Cells 0.0 % Hemoglobin A1c 8.1 % A1C (<5.7) Beta-Hydroxybutyric Acid > 4.500 mmol/L (< 0.4) Blood Gas Specimen Type Arterial Blood Gas Sample Site Right radial Blood Gas Patient Temperature 37.0 Arterial Blood Date Drawn [id number] Arterial Blood pH 7.232 (7.350-7.450) Arterial Blood Partial Pressure CO2 16.9 mmHg (32.0-45.0) Arterial Blood Partial Pressure O2 124.9 mmHg (83.0-108.0) Arterial Blood HCO3 7.0 mmol/L (21.0-28.0) Arterial Blood Oxygen Saturation 98.3 % (94.0-98.0) Arterial Blood Base Excess -18.5 mmol/L (-2.0-3.0) Arterial Blood Oxyhemoglobin 97.3 % (94.0-98.0) Arterial Blood Carboxyhemoglobin 0.3 % (0.5-1.5) Arterial Blood Methemoglobin 0.7 % (0.0-1.5) Jose Rafael Test Yes Blood Gas Total Hemoglobin 10.60 g/dL (12.0-16.0) Blood Gas Modality Room air FiO2 % 21.0 Blood Gas Critical Value Read Back yes Blood Gas Notified Whom pedro salazar md Blood Gas Notified Time [id number] Blood Gas Notified By dale mauricio Urine Opiates Screen Neg (NEGATIVE) Urine Fentanyl Screen Pos (NEGATIVE) Urine Barbiturates Screen Neg (NEGATIVE) Urine Phencyclidine Screen Neg (NEGATIVE) Urine Amphetamines Screen Neg (NEGATIVE) Urine Benzodiazepines Screen Neg (NEGATIVE) Urine Cocaine Screen Neg (NEGATIVE) Urine Cannabinoids Screen Pos (NEGATIVE) Other Laboratory Tests 03/18/25 10:10 03/17/25 05:36 Brief Hx & Hospital Course: History of Present Illness Luisana Bassett is a 39-year-old female with past medical history of hypertension, diabetes, and gastroparesis, who came in due to abdominal pain, nausea, and vomiting. Patient states her symptoms began last . She states she arnoldo to [place] on , Saturday, and Saturday, and then on Saturday went to [facility] for her symptoms. Every visit she states they gave her fluids and sent her home. Patient was found to have elevated blood sugar and be in DKA in the ER. Course of hospitalization: Patient was transitioned from insulin drip to long-acting insulin as well as sliding scale. Patient's blood sugars has been somewhat labile given her inability to tolerate oral intake with persistent nausea and vomiting. Patient was placement antiemetics, Carafate, ppi. GI consultation was obtained, for which the patient underwent EGD with findings of esophagitis. Patient was assessed today, found to still complain of nausea with a bout of vomiting this morning after breakfast. Patient is stable to transfer to [facility] for continued medical treatment for her insulin dependent diabetes mellitus as well as her probable gastroparesis and esophagitis. Patient was agreeable with discharge plan. All questions answered. Physical examination General: Alert and Oriented x3. No acute distress. Well-nourished. Eyes: EOMI. Anicteric. HENT: Moist mucous membranes. Lungs: Clear to auscultation bilaterally. No accessory muscle use. Cardiovascular: Regular rate and rhythm. No murmur. No JVD. Abdomen: Soft, non-tender and non-distended. No palpable masses. Extremities: No edema. Non-tender. Skin: No rashes or lesions. Warm. Neurologic: No focal neurological deficits. CN II-XII grossly intact, but not individually tested. Psychiatric: Cooperative. Appropriate mood and affect. Total time spent with patient discussing and formulating plan of care: 35 minutes. This medical document was created using an electronic medical record system with [employer] dictation system. Although this document has been carefully reviewed, there may still be some phonetic and typographical errors. These areas are purely typographical due to imperfections of the software programs, and do not reflect any compromise in the patient's medical care. Consults/Reason for consult Gastroenterology: Nausea and vomiting Operations or Procedures EGD Condition at Discharge: Guarded Final Diagnosis/Problems List Diabetic ketoacidosis Secondary diagnosis: -diabetic ketoacidosis -hyperkalemia -probable diabetic gastroparesis -intractable nausea and vomiting -polysubstance abuse with noted fentanyl and cannabinoids in UDS. No notation of fentanyl provided in route to hospital or by emergency room physician -microcytic, hypochromic anemia -esophagitis Discharge Disposition: Acute Care Facility Discharge Instruct/Medications Diet: Consistent carbohydrate Activity: No Restrictions, As Tolerated Follow Up/Referral: Per accepting provider Medications: Refer to medication reconciliation form 36 Discharge Statement: "Patient was advised to return to the ER or call 911 if any headaches, dizziness, shortness of breath, chest pain, abdominal pain, bleeding, fevers, or worsening of medical condition. Patient was counseled about treatment plan, medications, possible side effects, patientverbalized understanding. All questions were answered to the best of my ability. This discharge took greater then 30 minutes in planning, reviewing documentation, counseling the patient, and discussing with other team members." ASSESSMENT ASSESSMENT Assessment Diabetic ketoacidosis Date of Service: March 22, 2025 Billing Provider: MARION PATE NP Common Visit Codes: 86692-NKU/OBS DISCH DAY >30min MARION PATE NP March 22, 2025 09:35
[2025-03-22 12:44] VITALS: BP 139/91; PULSE 101; RESP 17; TEMP 98.8; O2SAT 99
[2025-03-22] MEDS ORDERED: METO5TAB67 PO (16:12)
[2025-03-22] MEDS ORDERED: PANT40TA2 PO (16:12)
[2025-03-22 16:53] VITALS: BP 144/82; PULSE 94; RESP 17; TEMP 98.8; O2SAT 100
== END 2025-03-22 17:30 | disposition home or self-care (01) | DRG 48 ==
LOC: ER 04:34 → EDBD 04:34 → OVERFLOW 10:37 → ER 10:44 → TELE-WESTW 23:55
PROVIDERS: ADMIT Nurse Practitioner Acute Care; ATTEND Nurse Practitioner Acute Care
PROC: 0DB68ZX Excision of Stomach, Via Natural or Artificial Opening Endoscopic, Diagnostic (ICD-10-PCS; 2025-03-19)
PROC: 0DB58ZX Excision of Esophagus, Via Natural or Artificial Opening Endoscopic, Diagnostic (ICD-10-PCS; 2025-03-19)
PROC: 0DB98ZX Excision of Duodenum, Via Natural or Artificial Opening Endoscopic, Diagnostic (ICD-10-PCS; principal; 2025-03-19 12:56)
DX: E10.43 Type 1 diabetes mellitus with diabetic autonomic (poly)neuropathy (principal); N17.0 Acute kidney failure with tubular necrosis; R65.10 Systemic inflammatory response syndrome (SIRS) of non-infectious origin without acute organ dysfunction; F11.10 Opioid abuse, uncomplicated; E86.0 Dehydration; D50.9 Iron deficiency anemia, unspecified; E87.5 Hyperkalemia; E10.10 Type 1 diabetes mellitus with ketoacidosis without coma; K31.84 Gastroparesis; F12.10 Cannabis abuse, uncomplicated; K29.80 Duodenitis without bleeding; K20.90 Esophagitis, unspecified without bleeding; K29.70 Gastritis, unspecified, without bleeding; I10 Essential (primary) hypertension; K44.9 Diaphragmatic hernia without obstruction or gangrene; Z88.5 Allergy status to narcotic agent; Z79.4 Long term (current) use of insulin; Z79.899 Other long term (current) drug therapy; Z98.891 History of uterine scar from previous surgery; Z98.82 Breast implant status; Z80.8 Family history of malignant neoplasm of other organs or systems
CPT/HCPCS: 36415; 36600; 43239; 71045; 74176; 80048; 80053; 80307; 81001; 82010; 82805; 82962; 83036; 84132; 84702; 85025; 85610; 85730; 87081; 87086; 93005; 96361; 96374; 96375; 96376; 99291; 99292; G0378; J1815; J1885; J2405; J2470; J2704

== ENCOUNTER 2025-05-03 19:37 | Emergency (ER) | payer MEDICAID ==
[~2025-05-03] VITALS: Ht 175.3 cm; Wt 74.5 kg
[~2025-05-03 19:37] MED LIST changes: +METO5TAB67 PO; +PANT40TA2 PO
--- NOTE | 2025-05-03 20:20 | ED.PDOC ---
History of Present Illness HPI Comments 39 y/o F is BIBA from home for c/c nonradiating, epigastric abdominal pain, nausea, vomiting, and neck pain s/p syncope and fall. Per EMS report, patient endorses on sudden and unprovoked onset of GI symptoms a few hours prior to arrival. She states on being in her bathroom when she then passed out and fell prior to developing neck pain. Patient has a significant history of microcytic, hypochromic anemia, DM, DKA, esophagitis, gastroparesis, hiatal hernia, HTN, BTL, 2x C-sections, and polysubstance abuse. Vitals were stable and within normal limits. En route, patient received 100g Fentanyl IM. At time of assessment, patient denies any recent substance use or prior ailments. LBM is re ported to have been normal, this morning. Self-measured blood glucose, today, was 89. Denies any bloody or bilious vomitus, diarrhea, constipation, urinary symptoms, fever, chills, lightheadedness, head or additional body pain or injuries, or further associated symptoms. Time Seen by MD: 19:55 Primary Care Provider: ITZEL Reviewed Notes: Nurses Notes, Nursing Informatics Clinical Analyst Notes, Medications, Allergies Allergies: Coded Allergies: Hydrocodone (Verified Allergy, Unknown, 09/21/20) Lisinopril (Verified Allergy, Unknown, 05/28/24) Meperidine (Verified Allergy, Unknown, 03/16/25) Home Meds Active Scripts Pantoprazole Sodium Sesquihydr (Protonix) 40 Mg Tab, 40 MG PO BID for 30 Days, #60 TAB Prov:MARION PATE LGSW 03/22/25 Metoclopramide Hcl (Reglan) 5 Mg Tab, 5 MG PO AC for 30 Days, #90 TAB Prov:MARION PATE LGSW 03/22/25 Reported Medications Chlorhexidine Gluconate (Mouth (CHLORHEXIDINE ORAL RINSE) 473 Ml So, 15 ML MT Q12HR, ML 12/17/24 Insulin Lispro (Human) (Humalog) 100 Unit/Ml Inj, 100 UNIT SC, INJ 12/17/24 Insulin Glargine (Lantus) 100 Unit/Ml Inj, 40 UNITS SC DAILY 12/16/24 Amlodipine Besylate (Amlodipine Besylate) 10 Mg Tab, 1 TAB PO DAILY 12/16/24 Information Source: Patient, Emergency Med Personnel Mode of Arrival: EMS Severity: Moderate Timing: Hours Duration: Since onset Prehospital treatment: 12 Lead EKG, Accucheck, Assembler Lay Ups, Pain Meds (100 g) Past Medical History PAST MEDICAL HISTORY: Anemia (microcytic, hypochromic anemia), DM, HTN Past Medical History (Other): Esophagitis Gastroparesis DKA Surgical History: BTL, ACUPUNCTURIST History: No Pertinent ACUPUNCTURIST History Family History Family History: Unknown Social History Smoker: Non-Smoker Alcohol: Sober (>1 year) Drugs: Marijuana, Other (Fentanyl) Lives In: Home All Other Systems: Reviewed and Negative (Comprehensive systems review obtained and negative except for what is stated in the HPI.) Physical Exam General Appearance: No Apparent Distress, Normal HEENT: Normal ENT Inspection, Pharynx Normal, TMs Normal Neck: Full Range of Motion, Non-Tender, Normal, Normal Inspection Respiratory: Chest Non-Tender, Lungs Clear, No Accessory Muscle Use, No Respiratory Distress, Normal Breath Sounds Cardiovascular: No Edema, No JVD, No Murmur, No Gallop, Normal Peripheral Pulses, Regular Rate/Rhythm Breast Exam: Deferred Gastrointestinal: No Organomegaly, Non Tender (no tenderness with deep palpation to abdomen with stethoscope), No Pulsatile Mass, Normal Bowel Sounds, Soft, Other (no guarding or rebound) Genitalia: Deferred Pelvic: Deferred Rectal: Deferred Extremities: No calf tenderness, Normal capillary refill, Normal inspection, Normal range of motion, Non-tender, No pedal edema Musculoskeletal : Apperance: Normal Neurologic: Alert, tape recorder mechanic II-XII nml as Tested, No Motor Deficits, Normal Affect, Normal Mood, No Sensory Deficits Cerebellar Function: Normal Reflexes: Normal Skin: Dry, Normal Color, Warm Lymphatic: No Adenopathy Was a procedure done? Was a procedure done?: No Differential Dx Considerations may include: gastritis, gastroenteritis, GERD, PUD, viral syndrome, electrolyte imbalance, dehydration, viral syndrome, gastroparesis among others X-Ray, Labs, Meds, VS Vital Signs Date Time Temp Pulse Resp B/P (MAP) Pulse Ox O2 Delivery O2 Flow Rate FiO2 05/03/25 19:45 97.3 114 16 155/63 (93) 96 97.3 Lab Test 05/03/25 20:24 Range/Units White Blood Count 9.1 4.4-10.8 10^3/uL Red Blood Count 4.99 4.0-5.20 10^6/uL Hemoglobin 10.4 L 12.2-16.2 g/dL Hematocrit 33.2 L 36.0-46.0 % Mean Corpuscular Volume 66.5 L 80.0-100.0 fL Mean Corpuscular Hemoglobin 20.8 L 28.0-32.0 pg Mean Corpuscular Hemoglobin Concent 31.3 L 32.0-36.0 g/dL Red Cell Distribution Width 19.3 H 11.8-14.3 % Platelet Count 314 140-450 10^3/uL Mean Platelet Volume 9.4 6.9-10.8 fL Neutrophils (%) (Auto) 80.6 H 37.0-80.0 % Lymphocytes (%) (Auto) 11.0 10.0-50.0 % Monocytes (%) (Auto) 6.0 0.0-12.0 % Eosinophils (%) (Auto) 1.4 0.0-7.0 % Basophils (%) (Auto) 1.0 0.0-2.0 % Neutrophils # (Auto) 7.3 1.6-8.6 10 ^3/uL Lymphocytes # (Auto) 1.0 0.4-5.4 10 ^3/uL Monocytes # (Auto) 0.5 0-1.3 10 ^3/uL Eosinophils # (Auto) 0.1 0-0.8 10 ^3/uL Basophils # (Auto) 0.1 0-0.2 10 ^3/uL Nucleated Red Blood Cells 0.0 % Sodium Level 135 L 136-145 mmol/L Potassium Level 4.1 3.5-5.1 mmol/L Chloride Level 101 98-107 mmol/L Carbon Dioxide Level 22 20-31 mmol/L Anion Gap 12 5-15 Blood Urea Nitrogen 18 9-23 mg/dL Creatinine 0.99 0.550-1.02 mg/dL Glomerular Filtration Rate Calc 73 >90 mL/min BUN/Creatinine Ratio 18.2 10.0-20.0 Serum Glucose 292 H 74-106 mg/dL Calcium Level 10.7 H 8.7-10.4 mg/dL Total Bilirubin 1.0 0.2-1.0 mg/dL Aspartate Amino Transferase (AST) 12 L 13-40 U/L Alanine Aminotransferase (ALT) 13 7-40 U/L Alkaline Phosphatase 97 46-116 U/L Total Protein 7.8 5.7-8.2 g/dL Albumin 5.2 H 3.2-4.8 g/dL Lipase 25 12-53 U/L Plasma/Serum Blood Alcohol < 3.0 <10 mg/dL Time of 1ST Reevaluation: 20:25 Reevaluation 1ST: Unchanged Time of 2ND Reevaluation: 23:09 Reevaluation 2ND: Improved Patient Education/Counseling: Diagnosis, Treatment, Prognosis, Need For Follow Up Family Education/Counseling: Diagnosis, Treatment, Prognosis, Need For Follow Up, No Family Present Comments pt is feeling improved, but still has pain. she states that she has a animal daycare provider, and other specialists who do not agree on how to treat this recurrent pain. she is still waiting on the pain medication and saline. after this, she is eager to go home to follow up with her doctor Additional Information Previous visits reviewed: December 16, 2024, December 20, 2024, and March 16, 2025 encounters for DKA, nausea and vomiting, and DKA, respectively. The following tests were ordered, and results were reviewed by me: Accucheck, CT abdomen/pelvis w/o contrast, urine ethanol, UA, drug screen, lipase, CMP, CBC Additional Information was gathered from interviewing the following independent historians: EMS I reviewed and agreed with the following test results read by other providers: CT abdomen/pelvis w/o contrast I discussed treatment and results with medical personnel and: patient Comprehensive systems review obtained and negative except for what is stated in the HPI. SEPSIS Sepsis Screen Physician Orders Drug Screen (05/03/25 19:59) Urinalysis (05/03/25 19:59) Ct Ab Pel Wo Con-No Oral Or Iv (05/03/25 19:59) Accucheck (05/03/25 19:59) Vital Signs Date Time Temp Pulse Resp B/P (MAP) Pulse Ox O2 Delivery O2 Flow Rate FiO2 05/03/25 19:45 97.3 114 16 155/63 (93) 96 97.3 Laboratory Tests Test 05/03/25 20:24 White Blood Count 9.1 10^3/uL (4.4-10.8) Departure 1 Departure Time of Disposition: 23:14 Impression: Primary Impression: Chronic abdominal pain Additional Impression: Gastroparesis Disposition: HOME / SELF CARE / HOMELESS Condition: Good Discharged With: Self, Relative (Father) Critical Care Note Critical Care Time?: Yes (55 min-critical care time only) Critical care comment: Due to concerns for patients condition deteriorating, the care required my highest level of attention and readiness to intervene. I assessed the patient, reviewed the medical records, ordered the appropriate tests and treatments, then reassessed for results and responsiveness. I communicated with medical personnel and consultants and formulated a plan of care. Total critical care time excludes any procedures Stability Stability form required: No Heart Score Heart Score: Heart Score Response (Comments) Value History N/A 0 EKG N/A 0 Age N/A 0 Risk Factors N/A 0 Troponin N/A 0 Total 0 I personally scribed for DEEPALI RICHARDSON MD ([email or web address]) on 05/03/25 at 20:20. Electronically submitted by Enrique Muse ([email or web address]). I personally scribed for DEEPALI RICHARDSON MD ([email or web address]) on 05/03/25 at 20:31. Electronically submitted by Enrique Muse ([email or web address]). I personally scribed for DEEPALI RICHARDSON MD ([email or web address]) on 05/03/25 at 20:32. Electronically submitted by Enrique Muse ([email or web address]). DEEPALI RICHARDSON MD May 03, 2025 20:20
[2025-05-03 20:37] LABS: Nucleated Red Blood Cells % 0.0 %
[2025-05-03 20:39] LABS: Hematocrit 33.2 % (36.0-46.0); Hemoglobin 10.4 g/dL (12.2-16.2); Mean Corpuscular Hemoglobin 20.8 pg (28.0-32.0); Mean Corpuscular Volume 66.5 fL (80.0-100.0)
[2025-05-03 21:01] LABS: Alanine Aminotransferase 13 U/L (7-40); Alkaline Phosphatase 97 U/L (46-116); Anion Gap 12 (5-15); BUN/Creatinine Ratio 18.2 (10.0-20.0); Bilirubin, Total 1.0 mg/dL (0.2-1.0); Blood Urea Nitrogen 18 mg/dL (9-23); Carbon Dioxide 22 mmol/L (20-31); Chloride 101 mmol/L (98-107); Potassium 4.1 mmol/L (3.5-5.1); Total Protein 7.8 g/dL (5.7-8.2)
[2025-05-03 21:02] LABS: Albumin 5.2 g/dL (3.2-4.8); Calcium 10.7 mg/dL (8.7-10.4); Glucose 292 mg/dL (74-106); Sodium 135 mmol/L (136-145)
[2025-05-03 21:13] LABS: Lipase 25 U/L (12-53)
--- NOTE | 2025-05-03 22:00 | DVH ---
Exam: CT CT AB PEL WO CON-NO ORAL OR IV History: abdominal pain, history of gastroparesis Comparison Study: CT CT AB PEL WO CON-NO ORAL OR IV on DOS: 03/16/25 Technique: Multidetector spiral CT of the abdomen was performed from lung bases to pubic symphysis. Imaging was performed without IV contrast. Axial, coronal and sagittal multiplanar reformats were ob tained from the axial data set by the technologist. Radiation Dose : 1. Abdomen/Pelvis: CTDIvol 13.27 mGy, DLP 668.67 mGy*cm. Findings: Evaluation of solid organs is limited due to lack of intravenous contrast use. Lung Bases: No abnormality demonstrated. Liver: Liver is normal in size. No focal lesions noted. Gallbladder and Biliary Tree: No abnormality demonstrated. Spleen: No abnormality demonstrated. Pancreas: No abnormality demonstrated. Adrenal Glands: No abnormality demonstrated. Kidneys: No abnormality demonstrated. No renal calculus or hydroureteronephrosis Bladder: Grossly unremarkable for degree of distention. Bowel: Stomach appears grossly unremarkable. No abnormally dilated or thick-walled loops of large or small bowel noted. Appendix appears unremarkable. Ascites: Absent Lymphadenopathy: No evidence of lymphadenopathy. Abdominal Wall and Mesentery: Unremarkable. Vasculature: Unremarkable. Pelvic Organs: Unremarkable. No pelvic mass or fluid collection. Musculoskeletal: No aggressive bony lesions or fracture. IMPRESSION: No abnormality demonstrated. Radiation optimization: All CT scans at this facility use at least one of these dose optimization marjorie hniques: automated exposure control mA and/or kV adjustment per patient size (includes targeted exam s where dose is matched to clinical indication) or iterative reconstruction.
[2025-05-04] MEDS: SODIUM CHLORIDE 0.9% 1,000 ML IV ONE
[2025-05-04] MEDS: fentaNYL CITRATE 100 MCG/2 ML VL IV ONE
[2025-05-04] MEDS: METOCLOPRAMIDE HCL 5MG/ml INJ 2ml VIAL IV ONE
[2025-05-04] MEDS: diphenhdrAMINE HCL 50 MG/1 ML VL IM ONE (00:48)
[2025-05-04] MEDS: HALOPERIDOL LACTATE 5 MG/ML INJ VIAL IM ONE (00:48)
[2025-05-04 02:04] LABS: Urine Protein, UAD Negative (Negative)
[2025-05-04 02:08] LABS: Amphetamine Screen, Urine Neg (NEGATIVE); Barbiturate Scree,Urine Neg (NEGATIVE); Benzodiazephine Screen, Urine Neg (NEGATIVE); Cannabinoid Screen, Urine Pos (NEGATIVE); Cocaine Screen, Urine Neg (NEGATIVE); Opiate Scree,Urine Neg (NEGATIVE); Phencyclidine Screen, Urine Neg (NEGATIVE)
[2025-05-04 02:29] VITALS: BP 149/67; PULSE 94; RESP 16; TEMP 97.7; O2SAT 94
== END 2025-05-04 03:22 | disposition short-term general hospital (02) ==
LOC: EDBD 19:37 → EDSEX 19:37 → ER 19:37
DX: K31.84 Gastroparesis (principal); G89.29 Other chronic pain; F12.90 Cannabis use, unspecified, uncomplicated; Z86.2 Personal history of diseases of the blood and blood-forming organs and certain disorders involving the immune mechanism; E11.43 Type 2 diabetes mellitus with diabetic autonomic (poly)neuropathy; I10 Essential (primary) hypertension; Z98.51 Tubal ligation status; Z88.8 Allergy status to other drugs, medicaments and biological substances; Z79.899 Other long term (current) drug therapy; Z98.890 Other specified postprocedural states; Z88.1 Allergy status to other antibiotic agents
CPT/HCPCS: 36415; 74176; 80053; 80307; 80320; 81001; 83690; 85025; 96361; 96372; 96374; 96375; 99285; J1200; J1630; J2765; J3010; J7030